=== PATIENT | female | born 1965 | race Caucasian/White ===

== ENCOUNTER 2017-05-03 17:37 | Inpatient (IN) | payer MEDICAID, MEDICARE, OTHER ==
[~2017-05-03] VITALS: Ht 154.9 cm; Wt 65.0 kg
[~2017-05-03 17:37] MED LIST: ATOR40TA PO; CITA20TA9 PO; FAMO-63 PO; METF-620 PO; MONT10TA9 PO; NICO1PAT21 TP; WARF10TA45 PO
[2017-05-03 18:22] LABS: BASO % 1 % (0-3); EOS % 3 % (0-3); LYMPH # 0.9 x10^3/uL (1.0-4.8); LYMPH % 21 % (24-48); MEAN CORPUSCULAR HEMOGLOBIN 35 pg (25-35); MEAN CORPUSCULAR HGB CONC 32 g/dL (31-37); MEAN CORPUSCULAR VOLUME 108 fL (79-100); MONO % 6 % (0-9); NEUT % 68 % (31-73); PLATELET COUNT 197 x10^3/uL (140-400); RED BLOOD COUNT 1.76 x10^6/uL (3.50-5.40); RED CELL DISTRIBUTION WIDTH 19.2 % (11.5-14.5); WHITE BLOOD COUNT 4.4 x10^3/uL (4.0-11.0)
[2017-05-03 18:25] LABS: HEMATOCRIT 18.9 % (36.0-47.0); HEMOGLOBIN 6.1 g/dL (12.0-15.5)
[2017-05-03 18:39] LABS: BILIRUBIN,URINE SMALL (NEG); GLUCOSE,URINE NEGATIVE (NEG); NITRITE,URINE NEGATIVE (NEG); PROTEIN,URINE NEGATIVE (NEG-TRACE)
[2017-05-03 18:40] LABS: CALCIUM 8.7 mg/dL (8.5-10.1); CREATININE 0.9 mg/dL (0.6-1.0); GFR 65.5; POTASSIUM 3.8 mmol/L (3.5-5.1)
[2017-05-03 18:46] LABS: ALBUMIN/GLOBULIN RATIO 0.9 (1.0-1.7); TOTAL BILIRUBIN 2.4 mg/dL (0.2-1.0); TOTAL PROTEIN 8.3 g/dL (6.4-8.2)
[2017-05-03 18:48] LABS: BACTERIA,URINE 0 /HPF (0-FEW); RBC,URINE 0 /HPF (0-2); SQUAMOUS EPITHELIAL CELL,UR FEW /LPF
[2017-05-03] MEDS ORDERED: predniSONE 20 MG TABLET PO ONE (19:15)
[2017-05-03] MEDS ORDERED: ONDANSETRON PF 4 MG/2 ML VIAL. IV PRN (19:15)
[2017-05-03] MEDS ORDERED: ACETAMINOPHEN 325 MG TABLET. PO PRN (19:15)
[2017-05-03 19:30] VITALS: BP 138/72
--- NOTE | 2017-05-03 19:48 | ED.ADGEN ---
Past Medical History Past Medical History: Anemia, COPD Additional Past Medical Histor: PTSD, BLOOD CLOTS, VISUALLY IMPAIRED, HEMOLYTIC ANEMIA Past Surgical History: Tonsillectomy, Other Additional Past Surgical Histo: THORACOTAMY Alcohol Use: None Drug Use: None Adult General Chief Complaint Chief Complaint: SHORTNESS OF BREATH HPI HPI Patient is a 51 year old [woman, history of COPD, hemolytic anemia, visual impairment, DVT after prolonged course of intubation 2 years ago, who presents emergency Department with a complaint of shortness of breath, lightheadedness, and dizziness over the past several days. Patient noted be tachycardic upon arousing the emergency department, heart rate in the 1 teens, states that she feels "like this with my anemia". Patient unable to clarify further her type of hemolytic anemia. She states that she last received a transfusion of 4 units 2014, states her hemoglobin is generally in the 11's, but has gone down to 2.5 previously. She denies any blood in her stool or urine, any injuries, denies any chest pain, states that she is expressing shortness of breath, with dyspnea on exertion, lightheadedness and dizziness, but no vertiginous symptoms, no syncope, no focal weakness, numbness or tingling, no recent travel or surgery, no swelling extremities. She states she has been otherwise compliant with medications. She does smoke cigarettes daily, no drugs or alcohol. Review of Systems Review of Systems Constitutional: Denies fever or chills. [] Eyes: Denies change in visual acuity. [] HENT: Denies nasal congestion or sore throat. [] Respiratory: Denies cough, shortness of breath, lightheadedness and dizziness. Cardiovascular: Denies chest pain or edema. [] GI: Denies abdominal pain, nausea, vomiting, bloody stools or diarrhea. [] : Denies dysuria. [] Musculoskeletal: Denies back pain or joint pain. [] Integument: Denies rash. [] Neurologic: Denies headache, focal weakness or sensory changes. [] Endocrine: Denies polyuria or polydipsia. [] Lymphatic: Denies swollen glands. [] Psychiatric: Denies depression or anxiety. [] Allergies Allergies Allergies Coded Allergies Type Severity Reaction Last Updated Verified No Known Drug Allergies 07/10/16 No Physical Exam Physical Exam Constitutional: Well developed, well nourished, no acute distress, patient is pale, with scleral icterus noted. [] HENT: Normocephalic, atraumatic, bilateral external ears normal, oropharynx moist, no oral exudates, nose normal. [] Eyes: PERRLA, EOMI, scleral icterus, no discharge. [] Neck: Normal range of motion, no tenderness, supple, no stridor. [] Cardiovascular: Tachycardic, S1, S2, no rubs or gallops. [] Lungs & Thorax: Diminished breath sounds at bases bilaterally, no rhonchi or rales. No wheezing. No chest wall tenderness or crepitus. Abdomen: Bowel sounds normal, soft, no tenderness, no rebound, no rigidity,no guarding, no masses, no pulsatile masses. [] Skin: Warm, dry, no erythema, no rash. [] Back: No tenderness, no CVA tenderness. [] Extremities: No tenderness, no cyanosis, no clubbing, ROM intact, no edema. Negative Homans sign. Neurologic: Alert and oriented X 3, normal motor function, normal sensory function, no focal deficits noted. [] Psychologic: Affect normal, judgement normal, mood normal. [] Current Patient Data Vital Signs Vital Signs Date Time Temp Pulse Resp B/P (MAP) Pulse Ox O2 Delivery O2 Flow Rate FiO2 05/03/17 18:15 108 18 119/73 (88) 97 Room Air 05/03/17 17:45 98.3 98.3 Lab Values Laboratory Tests Test 05/03/17 18:10 05/03/17 18:30 White Blood Count 4.4 x10^3/uL (4.0-11.0) Red Blood Count 1.76 x10^6/uL (3.50-5.40) L Hemoglobin 6.1 g/dL (12.0-15.5) *L Hematocrit 18.9 % (36.0-47.0) *L Mean Corpuscular Volume 108 fL (79-100) H Mean Corpuscular Hemoglobin 35 pg (25-35) Mean Corpuscular Hemoglobin Concent 32 g/dL (31-37) Red Cell Distribution Width 19.2 % (11.5-14.5) H Platelet Count 197 x10^3/uL (140-400) Neutrophils (%) (Auto) 68 % (31-73) Lymphocytes (%) (Auto) 21 % (24-48) L Monocytes (%) (Auto) 6 % (0-9) Eosinophils (%) (Auto) 3 % (0-3) Basophils (%) (Auto) 1 % (0-3) Neutrophils # (Auto) 3.0 x10^3uL (1.8-7.7) Lymphocytes # (Auto) 0.9 x10^3/uL (1.0-4.8) L Monocytes # (Auto) 0.3 x10^3/uL (0.0-1.1) Eosinophils # (Auto) 0.1 x10^3/uL (0.0-0.7) Basophils # (Auto) 0.0 x10^3/uL (0.0-0.2) Reticulocyte Count (auto) 9.5 % (0.5-2.5) H Sodium Level 140 mmol/L (136-145) Potassium Level 3.8 mmol/L (3.5-5.1) Chloride Level 103 mmol/L (98-107) Carbon Dioxide Level 29 mmol/L (21-32) Anion Gap 8 (6-14) Blood Urea Nitrogen 22 mg/dL (7-20) H Creatinine 0.9 mg/dL (0.6-1.0) Estimated GFR (Cockcroft-Gault) 65.5 BUN/Creatinine Ratio 24 (6-20) H Glucose Level 130 mg/dL (70-99) H Calcium Level 8.7 mg/dL (8.5-10.1) Total Bilirubin 2.4 mg/dL (0.2-1.0) H Aspartate Amino Transferase (AST) 17 U/L (15-37) Alanine Aminotransferase (ALT) 19 U/L (14-59) Alkaline Phosphatase 55 U/L (46-116) Lactate Dehydrogenase 233 U/L (81-234) Troponin I Quantitative < 0.017 ng/mL (0.000-0.055) JI-Bhd-P-Type Natriuretic Peptide 379 pg/mL (0-124) H Total Protein 8.3 g/dL (6.4-8.2) H Albumin 4.0 g/dL (3.4-5.0) Albumin/Globulin Ratio 0.9 (1.0-1.7) L Urine Collection Type Unknown Urine Color Megan Urine Clarity Cloudy Urine pH 5.0 Urine Specific [place] >=1.030 Urine Protein Negative mg/dL (NEG-TRACE) Urine Glucose (UA) Negative mg/dL (NEG) Urine Ketones (Stick) Trace mg/dL (NEG) Urine Blood Negative (NEG) Urine Nitrite Negative (NEG) Urine Bilirubin Small (NEG) Urine Urobilinogen Dipstick 1.0 mg/dL (0.2 mg/dL) Urine Leukocyte Esterase Moderate (NEG) Urine RBC 0 /HPF (0-2) Urine WBC 11-20 /HPF (0-4) Urine Squamous Epithelial Cells Few /LPF Urine Amorphous Sediment Present /HPF Urine Bacteria 0 /HPF (0-FEW) Urine Mucus Mod /LPF Laboratory Tests 05/03/17 18:10 Laboratory Tests 05/03/17 18:10 EKG EKG EC: Sinus rhythm, heart rate 95 bpm, upright axis, QTC of 458, MI 158, QRS of 88, no ST elevations or depressions, no evidence of acute ST abnormalities. As interpreted by me. [] Radiology/Procedures Radiology/Procedures Chest x-ray: One view: Patient with hyperinflation noted bilaterally, consistent with history of COPD, no discrete infiltrates, effusions, pneumothorax, soft tissue or bony abnormalities identified. Cardiac silhouette is well-preserved. Flattening of the diaphragms. As interpreted by me. [] Course & Med Decision Making Course & Med Decision Making Pertinent Labs and Imaging studies reviewed. (See chart for details) Patient with pallor, tachycardia, dyspnea on exertion, and lightheadedness consistent with symptoms that anemia, hemoglobin is 6.1 in the emergency department, total bilirubin of 2.4, with scleral icterus as stated, consistent with hemolytic anemia. I did discuss these findings patient, she is agreeable for admission to the hospital for transfusion and evaluation with hematology oncology. Verbal and written consent for blood transfusion obtained, patient was typed and crossed for 2 units of packed red cells. An LDH, haptoglobin, reticulocyte count were added to her basic laboratory studies. I did speak with of hematology oncology, will institute 1 mg/kg of prednisone daily, first dose given in the emergency department. Findings as above discussed with Dr. Hernandez of internal medicine, patient accepted as a full admission to the medical telemetry floor to his service, with bridge orders entered per discussion. Dragon Disclaimer Dragon Disclaimer This electronic medical record was generated, in whole or in part, using a voice recognition dictation system. Departure Impression: Primary Impression: Anemia Disposition: 09 ADMITTED INPATIENT Admitting Physician: Mariangel Hernandez Condition: IMPROVED Problem Qualifiers Primary Impression: Anemia Anemia type: acquired or hereditary hemolytic anemia Hemolytic anemia type: hereditary hemolytic anemia, unspecified Qualified Codes: D58.9 - Hereditary hemolytic anemia, unspecified ROD DELGADILLO DO May 03, 2017 19:48
[2017-05-03] MEDS: IPRATRPIUM/ALBUTEROL 0.5/2.5MG 3 ML NEBU. NEB SCH (20:25)
[2017-05-03] MEDS ORDERED: CITA40TA12 PO (20:59)
[2017-05-03] MEDS ORDERED: ZOLP5TAB PO (20:59)
[2017-05-03] MEDS ORDERED: METF500T4 PO (20:59)
[2017-05-03] MEDS: FAMOTIDINE 20 MG TABLET. PO SCH (21:27)
[2017-05-03] MEDS: ATORVASTATIN CALCIUM 40 MG TABLET. PO SCH (21:27)
[2017-05-03] MEDS: MONTELUKAST SODIUM 10 MG TABLET. PO SCH (21:28)
[2017-05-03] MEDS: ZOLPIDEM 5 MG TABLET. PO SCH (21:28)
[2017-05-03] MEDS: CITALOPRAM 20 MG TABLET. PO SCH (21:28)
[2017-05-03] MEDS: NICOTINE 21MG PATCH. TD SCH (21:28)
[2017-05-03] MEDS ORDERED: metFORMIN 500 MG TABLET PO ONE (22:00)
[2017-05-03 22:30] VITALS: BP 124/64
[2017-05-03 22:45] VITALS: BP 123/70
[2017-05-03] MEDS ORDERED: diphenhydrAMINE 50 MG/ML VIAL IVP PRN (22:45)
[2017-05-04] VITALS (9 sets, daily range): BP systolic 107–136; BP diastolic 57–81
--- NOTE | 2017-05-04 00:27 | HP ---
ADMIT DATE: 05/03/2017 CHIEF COMPLAINT: Weakness and shortness of breath. HISTORY OF PRESENT ILLNESS: The patient is a pleasant 51-year-old female who presents with weakness and shortness of breath. She has a previous history of anemia, sure enough, we checked her hemoglobin, it is in the 5s. I have discussed the case with the ER physician. We are going to admit the patient and consult Hematology/Oncology. PAST MEDICAL HISTORY: Chronic hemolytic anemia of undetermined etiology, depression, COPD, diabetes, visual changes, tobaccoism. ALLERGIES: None. FAMILY HISTORY: Hypertension. SOCIAL HISTORY: She smokes. No drinking or drugs. MEDICATIONS: Reviewed, please refer to the MRAD. REVIEW OF SYSTEMS: GENERAL: She complains of weakness. SKIN: No bruising, hair changes or rashes. EYES: No blurred, double or loss of vision. NOSE AND THROAT: No history of nosebleeds, hoarseness or sore throat. HEART: No history of palpitations, chest pain or shortness of breath on exertion. LUNGS: She complains of shortness of breath. GASTROINTESTINAL: Denies changes in appetite, nausea, vomiting, diarrhea or constipation. GENITOURINARY: No history of frequency, urgency, hesitancy or nocturia. NEUROLOGIC: Denies history of numbness, tingling, tremor or weakness. PSYCHIATRIC: No history of panic, anxiety or depression. ENDOCRINE: No history of heat or cold intolerance, polyuria or polydipsia. EXTREMITIES: Denies muscle weakness, joint pain, pain on walking or stiffness. PHYSICAL EXAMINATION: VITAL SIGNS: Temperature, afebrile; pulse 67; respirations 18; blood pressure 142/91. GENERAL: She is alert, cooperative, anxious. HEENT: She has very pale conjunctivae. HEART: Normal S1 and S2. LUNGS: Clear. GASTROINTESTINAL: Abdomen is soft. Decreased bowel sounds. EXTREMITIES: No edema. SKIN: No rashes. She is very pale. PSYCHIATRIC: She is anxious. VASCULAR: Good capillary refill. ENDOCRINE: No thyromegaly. LYMPHATICS: No cervical nodes. HEMATOPOIETIC: No bruising. ASSESSMENT AND PLAN: Probable acute on chronic hemolytic anemia. The patient has been admitted. We are checking haptoglobin levels, iron levels, LDH levels. Consult Dr. Christiansen. Transfuse between 2 and 4 units of packed red blood cells. Cardiac monitoring. NIAL Joanna BROWNING DO DR: Bev JOB#: [id number] / [id number]
--- NOTE | 2017-05-04 05:25 | ACF ---
Admission Forms Criteria ANEMIA, IRON DEFICIENCY OR UNSPECIFIED Clinical Indications for Inpatient Care (Place 'X' for any and all applicable criteria): Admission is indicated for ANY ONE of the following(1)(2)(3)(4)(5)(6)(7): [X] I. Inpatient admission required rather than observation care (Also use Anemia, Iron Deficiency or Unspecified: Observation Care guideline as appropriate) because of ANY ONE of the following: [] a) Hemodynamic instability that is severe or persistent [] b) Active bleeding that cannot be rapidly controlled [X] c) CVS symptoms (i.e., dyspnea, chest pain, heart failure) that are severe or persistent [] d) Neurologic symptoms (i.e., cognitive impairment, recurrent syncope or near syncope) that are severe or persistent [] e) Cardiac arrhythmias of immediate concern [] f) Acute peripheral ischemia (e.g., pulseless, cool, mottled, or cyanotic extremity) [] g) High-risk low platelet count [] h) Acute renal failure [] i) Ongoing transfusion for blood loss (greater than 2 units) [] j) IV fluid to replace significant ongoing (eg, >24 hours) losses (> 3 L/m2 per day) [] k) Pulmonary artery catheter monitoring [] l) Supplemental oxygen or respiratory treatments for over 24 hours that are performable only in acute inpatient setting [] m) Immediate inpatient surgery [] n) Other condition, treatment or monitoring requiring inpatient admission [] II Active massive hemorrhage [] III. Active hemolysis with rapidly progressive anemia [A](6) Extended stay beyond goal length of stay may be needed for (17)(18) []a) Diagnosed cause of anemia requiring longer hospitalization (eg, active GI bleeding, immune hemolysis requiring electrophoresis, complications of malignancy requiring acute care []b) Continued emergent anemia indicators (23) []c) Transfusion reactions []d) Associated leukopenia or thrombocytopenia needing inpatient care []e) Active comorbidities (eg, renal failure, heart failure) The original [facility] Care Guidelines content created by [facility] Care Guidelines has been revised. The portions of the content which have been revised are identified through the use of italic text or in bold. [facility] Guidelines has neither reviewed nor approved the modified material. All other unmodified content is copyright [facility] Care Guidelines. Please see references footnoted in the original [facility] edition 2016 Admission Criteria Met?: Yes ATIYA CARROLL May 04, 2017 05:25
--- NOTE | 2017-05-04 06:18 | EKG ---
[facility] [address] [place] [address] Test Date: 2017-05-03 Test Time: 18:18:03 Pat Name: LASHONDA EMANUEL Department: Room: Gender: F [employer] Worker: : 1965 Requested By: ROD DELGADILLO Order Number: [id number] Reading MD: Measurements Intervals [place] Rate: 95 P: 90 IL: 158 QRS: 79 QRSD: 88 T: 66 QT: 362 QTc: 458 Interpretive Statements SINUS RHYTHM NORMAL ECG RI6.01 Unconfirmed report No previous ECG available for comparison
[2017-05-04] MEDS: IPRATRPIUM/ALBUTEROL 0.5/2.5MG 3 ML NEBU. NEB SCH ×4 (07:03→19:21)
[2017-05-04 07:29] LABS: BASO % 0 % (0-3); EOS % 0 % (0-3); HEMATOCRIT 27.5 % (36.0-47.0); HEMOGLOBIN 9.1 g/dL (12.0-15.5); LYMPH # 0.4 x10^3/uL (1.0-4.8); LYMPH % 12 % (24-48); MEAN CORPUSCULAR HEMOGLOBIN 34 pg (25-35); MEAN CORPUSCULAR HGB CONC 33 g/dL (31-37); MEAN CORPUSCULAR VOLUME 101 fL (79-100); MONO % 3 % (0-9); NEUT % 85 % (31-73); PLATELET COUNT 208 x10^3/uL (140-400); RED BLOOD COUNT 2.72 x10^6/uL (3.50-5.40); RED CELL DISTRIBUTION WIDTH 19.2 % (11.5-14.5); WHITE BLOOD COUNT 3.6 x10^3/uL (4.0-11.0)
--- NOTE | 2017-05-04 07:31 | RAD ---
Indication: Shortness of air. Time of exam 1850 hours. Correlation is made with prior study from 07/10/2016. The heart size is stable. The lungs are hyperinflated consistent with COPD. Parenchymal scarring or atelectasis in the left base is noted. Previously seen bilateral infiltrates or atelectasis have resolved. No new abnormality is detected. There is no effusion or pneumothorax. Impression: COPD and chronic changes. No acute feature is detected.
--- NOTE | 2017-05-04 07:49 | RAD ---
Indication: Macrocytic anemia. The pancreas is unremarkable. The aorta is nonaneurysmal. The IVC is unremarkable. The liver is upper limits in size at 17.8 cm. No liver mass is identified. The gallbladder demonstrates a small polyp versus nonshadowing calculus. No wall thickening or pericholecystic fluid is identified. No biliary ductal dilatation is seen. The spleen is enlarged at 14.5 cm. Kidneys are unremarkable. No calculi or hydronephrosis is identified. There is no ascites. Impression: 1. Splenomegaly. 2. Small nonshadowing calculus versus polyp in the gallbladder. The study is otherwise unremarkable.
[2017-05-04 08:00] LABS: CALCIUM 8.8 mg/dL (8.5-10.1); POTASSIUM 4.5 mmol/L (3.5-5.1)
[2017-05-04 08:10] LABS: % SAT IRON 40 % (15-34); IRON,SERUM 119 ug/dL (50-170)
[2017-05-04] MEDS: metFORMIN 500 MG TABLET PO SCH ×2 (08:35→18:15)
[2017-05-04] MEDS: NICOTINE 21MG PATCH. TD SCH (08:35)
[2017-05-04] MEDS: predniSONE 20 MG TABLET PO SCH (08:41)
[2017-05-04 09:24] LABS: VITAMIN-B12 325 pg/mL (247-911)
[2017-05-04 10:12] LABS: FOLATE > 20.00 ng/ml (3.2-20.0)
--- NOTE | 2017-05-04 13:27 | PDOC ---
PROGRESS NOTES Chief Complaint Chief Complaint symptomatic anemia hemolytic anemia, recurrent on disability for visually impaired reports history of poor immune system, no prior treatment at History of Present Illness History of Present Illness feels much better today [ hgb improved cont PO prednisone, s/p transfusion retic count has bounced higher today, to 17.6 monitor counts tomorrow Vitals Vitals Vital Signs Date Time Temp Pulse Resp B/P (MAP) Pulse Ox O2 Delivery O2 Flow Rate FiO2 05/04/17 11:16 96 Room Air 05/04/17 11:00 98.7 87 18 134/69 (90) 98.7 Physical Exam General: Alert, Oriented X3, Cooperative, No acute distress Heart: Regular rate, No murmurs Abdomen: No tenderness, No hepatosplenomegaly Extremities: No clubbing, No cyanosis, No edema Skin: No breakdown Labs LABS Laboratory Tests Test 05/03/17 18:10 05/03/17 18:30 05/03/17 20:27 05/04/17 07:13 White Blood Count 4.4 x10^3/uL (4.0-11.0) 3.6 x10^3/uL (4.0-11.0) Red Blood Count 1.76 x10^6/uL (3.50-5.40) 2.72 x10^6/uL (3.50-5.40) Hemoglobin 6.1 g/dL (12.0-15.5) 9.1 g/dL (12.0-15.5) Hematocrit 18.9 % (36.0-47.0) 27.5 % (36.0-47.0) Mean Corpuscular Volume 108 fL (79-100) 101 fL (79-100) Mean Corpuscular Hemoglobin 35 pg (25-35) 34 pg (25-35) Mean Corpuscular Hemoglobin Concent 32 g/dL (31-37) 33 g/dL (31-37) Red Cell Distribution Width 19.2 % (11.5-14.5) 19.2 % (11.5-14.5) Platelet Count 197 x10^3/uL (140-400) 208 x10^3/uL (140-400) Neutrophils (%) (Auto) 68 % (31-73) 85 % (31-73) Lymphocytes (%) (Auto) 21 % (24-48) 12 % (24-48) Monocytes (%) (Auto) 6 % (0-9) 3 % (0-9) Eosinophils (%) (Auto) 3 % (0-3) 0 % (0-3) Basophils (%) (Auto) 1 % (0-3) 0 % (0-3) Neutrophils # (Auto) 3.0 x10^3uL (1.8-7.7) 3.0 x10^3uL (1.8-7.7) Lymphocytes # (Auto) 0.9 x10^3/uL (1.0-4.8) 0.4 x10^3/uL (1.0-4.8) Monocytes # (Auto) 0.3 x10^3/uL (0.0-1.1) 0.1 x10^3/uL (0.0-1.1) Eosinophils # (Auto) 0.1 x10^3/uL (0.0-0.7) 0.0 x10^3/uL (0.0-0.7) Basophils # (Auto) 0.0 x10^3/uL (0.0-0.2) 0.0 x10^3/uL (0.0-0.2) Reticulocyte Count (auto) 9.5 % (0.5-2.5) 17.6 % (0.5-2.5) Haptoglobin <10 mg/dL (34-200) Sodium Level 140 mmol/L (136-145) 139 mmol/L (136-145) Potassium Level 3.8 mmol/L (3.5-5.1) 4.5 mmol/L (3.5-5.1) Chloride Level 103 mmol/L (98-107) 104 mmol/L (98-107) Carbon Dioxide Level 29 mmol/L (21-32) 25 mmol/L (21-32) Anion Gap 8 (6-14) 10 (6-14) Blood Urea Nitrogen 22 mg/dL (7-20) 19 mg/dL (7-20) Creatinine 0.9 mg/dL (0.6-1.0) 1.0 mg/dL (0.6-1.0) Estimated GFR (Cockcroft-Gault) 65.5 58.0 BUN/Creatinine Ratio 24 (6-20) Glucose Level 130 mg/dL (70-99) 184 mg/dL (70-99) Calcium Level 8.7 mg/dL (8.5-10.1) 8.8 mg/dL (8.5-10.1) Total Bilirubin 2.4 mg/dL (0.2-1.0) Aspartate Amino Transf (AST/SGOT) 17 U/L (15-37) Alanine Aminotransferase (ALT/SGPT) 19 U/L (14-59) Alkaline Phosphatase 55 U/L (46-116) Lactate Dehydrogenase 233 U/L (81-234) Troponin I Quantitative < 0.017 ng/mL (0.000-0.055) KP-Qyk-[id number]-Type Natriuretic Peptide 379 pg/mL (0-124) Total Protein 8.3 g/dL (6.4-8.2) Albumin 4.0 g/dL (3.4-5.0) Albumin/Globulin Ratio 0.9 (1.0-1.7) Urine Collection Type Unknown Urine Color Megan Urine Clarity Cloudy Urine pH 5.0 Urine Specific Hayes >=1.030 Urine Protein Negative mg/dL (NEG-TRACE) Urine Glucose (UA) Negative mg/dL (NEG) Urine Ketones (Stick) Trace mg/dL (NEG) Urine Blood Negative (NEG) Urine Nitrite Negative (NEG) Urine Bilirubin Small (NEG) Urine Urobilinogen Dipstick 1.0 mg/dL (0.2 mg/dL) Urine Leukocyte Esterase Moderate (NEG) Urine RBC 0 /HPF (0-2) Urine WBC 11-20 /HPF (0-4) Urine Squamous Epithelial Cells Few /LPF Urine Amorphous Sediment Present /HPF Urine Bacteria 0 /HPF (0-FEW) Urine Mucus Mod /LPF Glucose (Fingerstick) 181 mg/dL (70-99) Iron Level 119 ug/dL (50-170) Total Iron Binding Capacity 298 ug/dL (250-450) Iron Saturation 40 % (15-34) Vitamin B12 Level 325 pg/mL (247-911) Serum Folate > 20.00 ng/ml (3.2-20.0) Thyroid Stimulating Hormone (TSH) 0.470 uIU/mL (0.358-3.74) Test 05/04/17 07:29 6/26/17 11:39 Glucose (Fingerstick) 185 mg/dL (70-99) 195 mg/dL (70-99) Review of Systems Review of Systems weakness and dyspnea improved Assessment and Plan Assessmemt and Plan labs in AM Problems: Comment Review of Relevant I have reviewed the following items deanna (where applicable) has been applied. Labs Laboratory Tests Test 05/03/17 18:10 05/03/17 18:30 05/03/17 20:27 05/04/17 07:13 White Blood Count 4.4 x10^3/uL (4.0-11.0) 3.6 x10^3/uL (4.0-11.0) Red Blood Count 1.76 x10^6/uL (3.50-5.40) 2.72 x10^6/uL (3.50-5.40) Hemoglobin 6.1 g/dL (12.0-15.5) 9.1 g/dL (12.0-15.5) Hematocrit 18.9 % (36.0-47.0) 27.5 % (36.0-47.0) Mean Corpuscular Volume 108 fL (79-100) 101 fL (79-100) Mean Corpuscular Hemoglobin 35 pg (25-35) 34 pg (25-35) Mean Corpuscular Hemoglobin Concent 32 g/dL (31-37) 33 g/dL (31-37) Red Cell Distribution Width 19.2 % (11.5-14.5) 19.2 % (11.5-14.5) Platelet Count 197 x10^3/uL (140-400) 208 x10^3/uL (140-400) Neutrophils (%) (Auto) 68 % (31-73) 85 % (31-73) Lymphocytes (%) (Auto) 21 % (24-48) 12 % (24-48) Monocytes (%) (Auto) 6 % (0-9) 3 % (0-9) Eosinophils (%) (Auto) 3 % (0-3) 0 % (0-3) Basophils (%) (Auto) 1 % (0-3) 0 % (0-3) Neutrophils # (Auto) 3.0 x10^3uL (1.8-7.7) 3.0 x10^3uL (1.8-7.7) Lymphocytes # (Auto) 0.9 x10^3/uL (1.0-4.8) 0.4 x10^3/uL (1.0-4.8) Monocytes # (Auto) 0.3 x10^3/uL (0.0-1.1) 0.1 x10^3/uL (0.0-1.1) Eosinophils # (Auto) 0.1 x10^3/uL (0.0-0.7) 0.0 x10^3/uL (0.0-0.7) Basophils # (Auto) 0.0 x10^3/uL (0.0-0.2) 0.0 x10^3/uL (0.0-0.2) Reticulocyte Count (auto) 9.5 % (0.5-2.5) 17.6 % (0.5-2.5) Haptoglobin <10 mg/dL (34-200) Sodium Level 140 mmol/L (136-145) 139 mmol/L (136-145) Potassium Level 3.8 mmol/L (3.5-5.1) 4.5 mmol/L (3.5-5.1) Chloride Level 103 mmol/L (98-107) 104 mmol/L (98-107) Carbon Dioxide Level 29 mmol/L (21-32) 25 mmol/L (21-32) Anion Gap 8 (6-14) 10 (6-14) Blood Urea Nitrogen 22 mg/dL (7-20) 19 mg/dL (7-20) Creatinine 0.9 mg/dL (0.6-1.0) 1.0 mg/dL (0.6-1.0) Estimated GFR (Cockcroft-Gault) 65.5 58.0 BUN/Creatinine Ratio 24 (6-20) Glucose Level 130 mg/dL (70-99) 184 mg/dL (70-99) Calcium Level 8.7 mg/dL (8.5-10.1) 8.8 mg/dL (8.5-10.1) Total Bilirubin 2.4 mg/dL (0.2-1.0) Aspartate Amino Transf (AST/SGOT) 17 U/L (15-37) Alanine Aminotransferase (ALT/SGPT) 19 U/L (14-59) Alkaline Phosphatase 55 U/L (46-116) Lactate Dehydrogenase 233 U/L (81-234) Troponin I Quantitative < 0.017 ng/mL (0.000-0.055) PI-Pgv-P-Type Natriuretic Peptide 379 pg/mL (0-124) Total Protein 8.3 g/dL (6.4-8.2) Albumin 4.0 g/dL (3.4-5.0) Albumin/Globulin Ratio 0.9 (1.0-1.7) Urine Collection Type Unknown Urine Color Megan Urine Clarity Cloudy Urine pH 5.0 Urine Specific Hayes >=1.030 Urine Protein Negative mg/dL (NEG-TRACE) Urine Glucose (UA) Negative mg/dL (NEG) Urine Ketones (Stick) Trace mg/dL (NEG) Urine Blood Negative (NEG) Urine Nitrite Negative (NEG) Urine Bilirubin Small (NEG) Urine Urobilinogen Dipstick 1.0 mg/dL (0.2 mg/dL) Urine Leukocyte Esterase Moderate (NEG) Urine RBC 0 /HPF (0-2) Urine WBC 11-20 /HPF (0-4) Urine Squamous Epithelial Cells Few /LPF Urine Amorphous Sediment Present /HPF Urine Bacteria 0 /HPF (0-FEW) Urine Mucus Mod /LPF Glucose (Fingerstick) 181 mg/dL (70-99) Iron Level 119 ug/dL (50-170) Total Iron Binding Capacity 298 ug/dL (250-450) Iron Saturation 40 % (15-34) Vitamin B12 Level 325 pg/mL (247-911) Serum Folate > 20.00 ng/ml (3.2-20.0) Thyroid Stimulating Hormone (TSH) 0.470 uIU/mL (0.358-3.74) Test 05/04/17 07:29 05/04/17 11:39 Glucose (Fingerstick) 185 mg/dL (70-99) 195 mg/dL (70-99) Laboratory Tests Test 05/03/17 18:10 05/03/17 18:30 05/03/17 20:27 05/04/17 07:13 White Blood Count 4.4 x10^3/uL (4.0-11.0) 3.6 x10^3/uL (4.0-11.0) Red Blood Count 1.76 x10^6/uL (3.50-5.40) 2.72 x10^6/uL (3.50-5.40) Hemoglobin 6.1 g/dL (12.0-15.5) 9.1 g/dL (12.0-15.5) Hematocrit 18.9 % (36.0-47.0) 27.5 % (36.0-47.0) Mean Corpuscular Volume 108 fL (79-100) 101 fL (79-100) Mean Corpuscular Hemoglobin 35 pg (25-35) 34 pg (25-35) Mean Corpuscular Hemoglobin Concent 32 g/dL (31-37) 33 g/dL (31-37) Red Cell Distribution Width 19.2 % (11.5-14.5) 19.2 % (11.5-14.5) Platelet Count 197 x10^3/uL (140-400) 208 x10^3/uL (140-400) Neutrophils (%) (Auto) 68 % (31-73) 85 % (31-73) Lymphocytes (%) (Auto) 21 % (24-48) 12 % (24-48) Monocytes (%) (Auto) 6 % (0-9) 3 % (0-9) Eosinophils (%) (Auto) 3 % (0-3) 0 % (0-3) Basophils (%) (Auto) 1 % (0-3) 0 % (0-3) Neutrophils # (Auto) 3.0 x10^3uL (1.8-7.7) 3.0 x10^3uL (1.8-7.7) Lymphocytes # (Auto) 0.9 x10^3/uL (1.0-4.8) 0.4 x10^3/uL (1.0-4.8) Monocytes # (Auto) 0.3 x10^3/uL (0.0-1.1) 0.1 x10^3/uL (0.0-1.1) Eosinophils # (Auto) 0.1 x10^3/uL (0.0-0.7) 0.0 x10^3/uL (0.0-0.7) Basophils # (Auto) 0.0 x10^3/uL (0.0-0.2) 0.0 x10^3/uL (0.0-0.2) Reticulocyte Count (auto) 9.5 % (0.5-2.5) 17.6 % (0.5-2.5) Haptoglobin <10 mg/dL (34-200) Sodium Level 140 mmol/L (136-145) 139 mmol/L (136-145) Potassium Level 3.8 mmol/L (3.5-5.1) 4.5 mmol/L (3.5-5.1) Chloride Level 103 mmol/L (98-107) 104 mmol/L (98-107) Carbon Dioxide Level 29 mmol/L (21-32) 25 mmol/L (21-32) Anion Gap 8 (6-14) 10 (6-14) Blood Urea Nitrogen 22 mg/dL (7-20) 19 mg/dL (7-20) Creatinine 0.9 mg/dL (0.6-1.0) 1.0 mg/dL (0.6-1.0) Estimated GFR (Cockcroft-Gault) 65.5 58.0 BUN/Creatinine Ratio 24 (6-20) Glucose Level 130 mg/dL (70-99) 184 mg/dL (70-99) Calcium Level 8.7 mg/dL (8.5-10.1) 8.8 mg/dL (8.5-10.1) Total Bilirubin 2.4 mg/dL (0.2-1.0) Aspartate Amino Transf (AST/SGOT) 17 U/L (15-37) Alanine Aminotransferase (ALT/SGPT) 19 U/L (14-59) Alkaline Phosphatase 55 U/L (46-116) Lactate Dehydrogenase 233 U/L (81-234) Troponin I Quantitative < 0.017 ng/mL (0.000-0.055) ZE-Ysz-H-Type Natriuretic Peptide 379 pg/mL (0-124) Total Protein 8.3 g/dL (6.4-8.2) Albumin 4.0 g/dL (3.4-5.0) Albumin/Globulin Ratio 0.9 (1.0-1.7) Urine Collection Type Unknown Urine Color Megan Urine Clarity Cloudy Urine pH 5.0 Urine Specific Hayes >=1.030 Urine Protein Negative mg/dL (NEG-TRACE) Urine Glucose (UA) Negative mg/dL (NEG) Urine Ketones (Stick) Trace mg/dL (NEG) Urine Blood Negative (NEG) Urine Nitrite Negative (NEG) Urine Bilirubin Small (NEG) Urine Urobilinogen Dipstick 1.0 mg/dL (0.2 mg/dL) Urine Leukocyte Esterase Moderate (NEG) Urine RBC 0 /HPF (0-2) Urine WBC 11-20 /HPF (0-4) Urine Squamous Epithelial Cells Few /LPF Urine Amorphous Sediment Present /HPF Urine Bacteria 0 /HPF (0-FEW) Urine Mucus Mod /LPF Glucose (Fingerstick) 181 mg/dL (70-99) Iron Level 119 ug/dL (50-170) Total Iron Binding Capacity 298 ug/dL (250-450) Iron Saturation 40 % (15-34) Vitamin B12 Level 325 pg/mL (247-911) Serum Folate > 20.00 ng/ml (3.2-20.0) Thyroid Stimulating Hormone (TSH) 0.470 uIU/mL (0.358-3.74) Test 05/04/17 07:29 05/04/17 11:39 Glucose (Fingerstick) 185 mg/dL (70-99) 195 mg/dL (70-99) Medications Current Medications Prednisone (Prednisone) 60 mg 1X ONCE PO Last administered on 05/03/17 19:11 ; Start 05/03/17 at 19:15; Stop 05/03/17 at 19:16; Status DC Ondansetron HCl (Zofran) 4 mg PRN Q8HRS PRN IV NAUSEA/VOMITING; Start 05/03/17 at 19:15; Stop 05/04/17 at 19:14 Acetaminophen (Tylenol) 650 mg PRN Q4HRS PRN PO FEVER; Start 05/03/17 at 19:15 ; Stop 05/04/17 at 19:14 Albuterol/ Ipratropium (Duoneb) 3 ml RTQID NEB Last administered on 05/04/17 11:16; Start 05/03/17 at 20:00; Stop 05/04/17 at 19:59 Prednisone (Prednisone) 60 mg DAILY PO Last administered on 05/04/17 08:41; Start 05/04/17 at 09:00 Atorvastatin Calcium (Lipitor) 40 mg QHS PO Last administered on 05/03/17 21: 27; Start 05/03/17 at 21:00 Famotidine (Pepcid) 20 mg QHS PO Last administered on 05/03/17 21:27; Start at 21:00 Metformin HCl (Glucophage) 500 mg BIDWMEALS PO Last administered on 05/04/17 08:35; Start 05/04/17 at 08:00 Montelukast Sodium (Singulair) 10 mg QHS PO Last administered on 05/03/17 21: 28; Start 05/03/17 at 21:00 Nicotine (Nicoderm Cq 21mg) 1 patch DAILY TD Last administered on 05/04/17 08: 35; Start 05/03/17 at 21:00 Zolpidem Tartrate (Ambien) 5 mg QHS PO Last administered on 05/03/17 21:28; Start 05/03/17 at 21:00 Citalopram Hydrobromide (CeleXA) 40 mg QHS PO Last administered on 05/03/17 21 :28; Start 05/03/17 at 21:30 Metformin HCl (Glucophage) 500 mg 1X ONCE PO Last administered on 05/03/17 21 :40; Start 05/03/17 at 22:00; Stop 05/03/17 at 22:01; Status DC Diphenhydramine HCl (Benadryl) 25 mg PRN Q6HRS PRN IVP ITCHING Last administered on 05/03/17 23:31; Start 05/03/17 at 22:45 Lorazepam (Ativan) 1 mg PRN Q4HRS PRN IV ANXIETY / AGITATION Last administered on 05/04/17 01:04; Start 05/04/17 at 01:00 Vitamin B Complex (Folbic Tablet) 1 tab DAILY PO ; Start 05/04/17 at 13:30 Active Scripts Active Reported Ambien (Zolpidem Tartrate) 5 Mg Tablet 1 Tab PO QHS Celexa (Citalopram Hydrobromide) 40 Mg Tablet 1 Tab PO HS Metformin Hcl 500 Mg Tablet 500 Mg PO BIDWMEALS NICODERM CQ 21mg (Nicotine) 1 Each Patch.td24 1 Patch TP DAILY Montelukast Sodium Tablet (Montelukast Sodium) 10 Mg Tablet 1 Tab PO QHS Pepcid (Famotidine) 20 Mg Tablet 20 Mg PO QHS Lipitor (Atorvastatin Calcium) 40 Mg Tablet 1 Tab PO QHS Coumadin (Warfarin Sodium) 10 Mg Tablet 1 Tab PO DAILY 10 mg Thursday, Thursday, , Thursday Coumadin (Warfarin Sodium) 10 Mg Tablet 2 Tab PO 3X/WEEK 20 mg Thursday, Thursday and Thursday Vitals/I & O Vital Sign - Last 24 Hours 05/03/17 05/03/17 05/03/17 05/03/17 17:45 18:15 18:45 19:15 Temp 98.3 98.3 Pulse 105 108 114 106 Resp 22 18 18 20 B/P (MAP) 141/69 (93) 119/73 (88) 126/75 (92) 124/59 (80) Pulse Ox 98 97 96 97 O2 Delivery Room Air Room Air Room Air 05/03/17 05/03/17 05/03/17 05/03/17 19:30 20:00 20:24 20:27 Temp 97.5 97.5 Pulse 101 Resp 18 B/P (MAP) 138/72 (94) Pulse Ox 95 100 O2 Delivery Room Air Room Air Room Air Room Air 05/03/17 05/03/17 05/03/17 05/04/17 22:30 22:45 22:45 01:09 Temp 96.3 97.9 97.9 97.5 96.3 97.9 97.9 97.5 Pulse 98 101 101 89 Resp 18 20 20 20 B/P (MAP) 124/64 (84) 123/70 123/70 (87) 111/62 Pulse Ox 96 96 O2 Delivery Room Air Room Air 05/04/17 05/04/17 05/04/17 05/04/17 03:00 03:52 04:07 07:00 Temp 97.9 97.9 97.5 97.7 97.9 97.9 97.5 97.7 Pulse 86 86 88 91 Resp 18 20 20 18 B/P (MAP) 118/57 (77) 118/57 127/81 111/67 (82) Pulse Ox 94 94 O2 Delivery Room Air Room Air 05/04/17 05/04/17 05/04/17 05/04/17 07:03 08:00 11:00 11:16 Temp 98.7 98.7 Pulse 87 Resp 18 B/P (MAP) 134/69 (90) Pulse Ox 96 96 O2 Delivery Room Air Room Air Room Air Room Air Intake and Output 05/03/17 05/03/17 05/04/17 15:00 23:00 07:00 Intake Total 520 ml 895 ml Balance 520 ml 895 ml JENY CORTES MD May 04, 2017 13:27
[2017-05-04] MEDS: VITAMIN B12,B9,B6 COMPLEX 1 TABLET. PO SCH (15:46)
[2017-05-04 21:12] LABS: HEP A IGM ABDY Negative (Negative)
[2017-05-04] MEDS: FAMOTIDINE 20 MG TABLET. PO SCH (21:38)
[2017-05-04] MEDS: ZOLPIDEM 5 MG TABLET. PO SCH (21:38)
[2017-05-04] MEDS: MONTELUKAST SODIUM 10 MG TABLET. PO SCH (21:38)
[2017-05-04] MEDS: CITALOPRAM 20 MG TABLET. PO SCH (21:38)
[2017-05-04] MEDS: ATORVASTATIN CALCIUM 40 MG TABLET. PO SCH (21:39)
[2017-05-04] MEDS ORDERED: INSULIN DETEMIR 300 UNITS/3 ML INSULN.PEN. SQ ONE (22:00)
[2017-05-04] MEDS ORDERED: DEXTROSE 50% 25 GM / 50ML DISP.SYRIN. IV PRN (22:00)
[2017-05-05 03:23] VITALS: BP 129/81
--- NOTE | 2017-05-05 05:02 | CONS ---
DATE OF CONSULTATION: 05/04/2017 HEMATOLOGY/ONCOLOGY CONSULTATION REPORT CONSULTATION REQUESTED BY: Dr. Mariangel Hernandez. REASON FOR CONSULTATION: Autoimmune hemolytic anemia with worsening hemoglobin. HISTORY OF PRESENT ILLNESS: The patient is a 51-year-old female who was diagnosed with autoimmune hemolytic anemia at [facility] in 07/2013. She was then evaluated by Dr. Amanda Gallardo for management of prednisone for autoimmune hemolytic anemia. She received prednisone and then it was subsequently tapered. In 03/2014, she had evidence of relapse of autoimmune hemolytic anemia and she was started back on prednisone 60 mg a day on 03/14/2014. It was subsequently tapered. In 09/2014, her hemoglobin worse at 9.5 and the prednisone was again increased to 40 mg a day and then subsequently tapered. In 01/2015, she was admitted to [facility] for parainfluenza infection. She has prolonged hospitalization and rehab. Her dose of prednisone was increased to 40 mg a day. In 06/2015, hemoglobin was 13 and prednisone dose was tapered and then discontinue it. She was admitted to [facility] in 12/2015 with fatigue and hemoglobin dropped to 7.8 with reticulocyte count of 9.9% and she was started on prednisone 60 mg a day on 12/28/2015 with a good response and then it was discontinued. Her hemoglobin at her last appointment at [facility] was 13.4 on 02/14/2016. She did not return for followup after that. The patient was [facility] on 05/03/2017 with severe anemia and a hemoglobin of 6.1. She noticed worsening fatigue from 05/01/2017, which prompted her to come to the Emergency Room. Her reticulocyte count was 9.5 on 05/03/2017 with a haptoglobin of less than 10. Her LDH was 233. Total bilirubin was 2.4. She was started on prednisone 60 mg a day on 05/03/2017. PAST MEDICAL HISTORY: Diabetes mellitus, autoimmune hemolytic anemia, uveitis, pulmonary embolism and COPD. PAST SURGICAL HISTORY: Cataract, tonsillectomy, adenoidectomy and thoracentesis. FAMILY HISTORY: Positive for hypertension, diabetes and skin cancer. REVIEW OF SYSTEMS: A 14-point review of system was performed. Pertinent positives are mentioned in the history of present illness. Rest of the system review is negative. PHYSICAL EXAMINATION: GENERAL APPEARANCE: The patient is a 51-year-old female who is in no acute cardiorespiratory distress. VITAL SIGNS: Blood pressure 134/69, temperature 98.7. HEENT: Head atraumatic, normocephalic. Eyes: No icterus. NECK: Supple. CHEST: Bilaterally symmetrical. No crepitations or rhonchi heard. HEART: S1, S2 normal. ABDOMEN: Soft, nontender. CENTRAL NERVOUS SYSTEM: No focal neurological deficits. LYMPHATICS: No lymphadenopathy. SKIN: No rashes. PSYCHOLOGIC: Mood and affect are appropriate. MUSCULOSKELETAL: No joint effusions. LABORATORY DATA: From 05/03/2017, WBC 4.4, hemoglobin 6.1, platelet count 197, retic count 9.5, haptoglobin less than 10. LDH 233. Total bilirubin 2.4. AST 17, ALT 19, alkaline phosphatase 55. Creatinine 1.0. B12 325, iron 119. TIBC 298, iron saturation 40. RADIOLOGICAL STUDIES: Ultrasound of the abdomen on 05/04/2017 revealed splenomegaly 14.5 cm and the liver is the upper limits of its normal. There was also evidence of calculus versus polyp in the gallbladder. IMPRESSION AND PLAN: 1. Recurrent autoimmune hemolytic anemia with significant worsening of hemoglobin of 6.1 on 05/03/2017. I started her on prednisone 60 mg a day on 05/03/2017 and continue to monitor her response. I also discussed with her about further treatment options with rituximab and if she has no response, then to proceed with splenectomy. I discussed in detail with the patient and her family and all her questions were answered. 2. Fatigue secondary to severe anemia. She was very symptomatic and she received 2 units of PRBC transfusion on 05/03/2017. Hemoglobin improved to 9.1 on 05/04/2017 and symptoms of fatigue also significantly improved. Continue to monitor hemoglobin. BIRD DURANT MD DR: RASHAWN/jazzy JOB#: [id number] / [id number] GRACIELA
[2017-05-05 05:13] LABS: BASO % 1 % (0-3); EOS % 1 % (0-3); HEMATOCRIT 25.6 % (36.0-47.0); HEMOGLOBIN 8.7 g/dL (12.0-15.5); LYMPH # 0.9 x10^3/uL (1.0-4.8); LYMPH % 20 % (24-48); MEAN CORPUSCULAR HEMOGLOBIN 34 pg (25-35); MEAN CORPUSCULAR HGB CONC 34 g/dL (31-37); MEAN CORPUSCULAR VOLUME 101 fL (79-100); MONO % 6 % (0-9); NEUT % 73 % (31-73); PLATELET COUNT 194 x10^3/uL (140-400); RED BLOOD COUNT 2.54 x10^6/uL (3.50-5.40); RED CELL DISTRIBUTION WIDTH 20.4 % (11.5-14.5); RETIC COUNT 18.6 % (0.5-2.5); WHITE BLOOD COUNT 4.7 x10^3/uL (4.0-11.0)
[2017-05-05 05:51] LABS: CALCIUM 8.5 mg/dL (8.5-10.1); CREATININE 0.9 mg/dL (0.6-1.0); GFR 65.5; POTASSIUM 3.5 mmol/L (3.5-5.1)
[2017-05-05 07:00] VITALS: BP 117/77
[2017-05-05] MEDS: INSULIN ASPART 300 UNITS/3 ML INSULN.PEN SQ SCH ×4 (07:30→21:00)
[2017-05-05] MEDS: IPRATRPIUM/ALBUTEROL 0.5/2.5MG 3 ML NEBU. NEB SCH ×4 (08:00→19:35)
[2017-05-05] MEDS ORDERED: INSULIN ASPART 300 UNITS/3 ML INSULN.PEN SQ SCH (08:00)
[2017-05-05] MEDS: NICOTINE 21MG PATCH. TD SCH (08:35)
[2017-05-05] MEDS: metFORMIN 500 MG TABLET PO SCH ×2 (08:36→17:23)
[2017-05-05] MEDS: predniSONE 20 MG TABLET PO SCH (08:36)
[2017-05-05] MEDS: VITAMIN B12,B9,B6 COMPLEX 1 TABLET. PO SCH (08:36)
[2017-05-05] MEDS ORDERED: POTASSIUM CHLORIDE 20 MEQ TABLET.ER. PO ONE (09:15)
--- NOTE | 2017-05-05 09:24 | PDOC ---
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 Kuldip Luu Vitals Vital Signs Date Time Temp Pulse Resp B/P (MAP) Pulse Ox O2 Delivery O2 Flow Rate FiO2 05/05/17 07:00 97.9 90 20 117/77 (90) 98 Room Air 97.9 Physical Exam General: Alert, Oriented X3, Cooperative, No acute distress Heart: Regular rate, No murmurs Abdomen: No tenderness, No hepatosplenomegaly Extremities: No clubbing, No cyanosis, No edema Skin: No breakdown Labs LABS Laboratory Tests Test 05/04/17 11:39 05/04/17 17:02 05/04/17 20:53 05/05/17 04:29 Glucose (Fingerstick) 195 mg/dL (70-99) 263 mg/dL (70-99) 233 mg/dL (70-99) White Blood Count 4.7 x10^3/uL (4.0-11.0) Red Blood Count 2.54 x10^6/uL (3.50-5.40) Hemoglobin 8.7 g/dL (12.0-15.5) Hematocrit 25.6 % (36.0-47.0) Mean Corpuscular Volume 101 fL (79-100) Mean Corpuscular Hemoglobin 34 pg (25-35) Mean Corpuscular Hemoglobin Concent 34 g/dL (31-37) Red Cell Distribution Width 20.4 % (11.5-14.5) Platelet Count 194 x10^3/uL (140-400) Neutrophils (%) (Auto) 73 % (31-73) Lymphocytes (%) (Auto) 20 % (24-48) Monocytes (%) (Auto) 6 % (0-9) Eosinophils (%) (Auto) 1 % (0-3) Basophils (%) (Auto) 1 % (0-3) Neutrophils # (Auto) 3.4 x10^3uL (1.8-7.7) Lymphocytes # (Auto) 0.9 x10^3/uL (1.0-4.8) Monocytes # (Auto) 0.3 x10^3/uL (0.0-1.1) Eosinophils # (Auto) 0.0 x10^3/uL (0.0-0.7) Basophils # (Auto) 0.0 x10^3/uL (0.0-0.2) Reticulocyte Count (auto) 18.6 % (0.5-2.5) Sodium Level 143 mmol/L (136-145) Potassium Level 3.5 mmol/L (3.5-5.1) Chloride Level 106 mmol/L (98-107) Carbon Dioxide Level 28 mmol/L (21-32) Anion Gap 9 (6-14) Blood Urea Nitrogen 21 mg/dL (7-20) Creatinine 0.9 mg/dL (0.6-1.0) Estimated GFR (Cockcroft-Gault) 65.5 Glucose Level 111 mg/dL (70-99) Calcium Level 8.5 mg/dL (8.5-10.1) Test 05/05/17 07:32 Glucose (Fingerstick) 131 mg/dL (70-99) Review of Systems Review of Systems no n.v.d Assessment and Plan Assessmemt and Plan monitor Hgb , plan for DC tomorrow if similar Problems: Comment Review of Relevant I have reviewed the following items deanna (where applicable) has been applied. Labs Laboratory Tests Test 05/03/17 18:10 05/03/17 18:30 05/03/17 20:27 05/04/17 07:13 White Blood Count 4.4 x10^3/uL (4.0-11.0) 3.6 x10^3/uL (4.0-11.0) Red Blood Count 1.76 x10^6/uL (3.50-5.40) 2.72 x10^6/uL (3.50-5.40) Hemoglobin 6.1 g/dL (12.0-15.5) 9.1 g/dL (12.0-15.5) Hematocrit 18.9 % (36.0-47.0) 27.5 % (36.0-47.0) Mean Corpuscular Volume 108 fL (79-100) 101 fL (79-100) Mean Corpuscular Hemoglobin 35 pg (25-35) 34 pg (25-35) Mean Corpuscular Hemoglobin Concent 32 g/dL (31-37) 33 g/dL (31-37) Red Cell Distribution Width 19.2 % (11.5-14.5) 19.2 % (11.5-14.5) Platelet Count 197 x10^3/uL (140-400) 208 x10^3/uL (140-400) Neutrophils (%) (Auto) 68 % (31-73) 85 % (31-73) Lymphocytes (%) (Auto) 21 % (24-48) 12 % (24-48) Monocytes (%) (Auto) 6 % (0-9) 3 % (0-9) Eosinophils (%) (Auto) 3 % (0-3) 0 % (0-3) Basophils (%) (Auto) 1 % (0-3) 0 % (0-3) Neutrophils # (Auto) 3.0 x10^3uL (1.8-7.7) 3.0 x10^3uL (1.8-7.7) Lymphocytes # (Auto) 0.9 x10^3/uL (1.0-4.8) 0.4 x10^3/uL (1.0-4.8) Monocytes # (Auto) 0.3 x10^3/uL (0.0-1.1) 0.1 x10^3/uL (0.0-1.1) Eosinophils # (Auto) 0.1 x10^3/uL (0.0-0.7) 0.0 x10^3/uL (0.0-0.7) Basophils # (Auto) 0.0 x10^3/uL (0.0-0.2) 0.0 x10^3/uL (0.0-0.2) Reticulocyte Count (auto) 9.5 % (0.5-2.5) 17.6 % (0.5-2.5) Haptoglobin <10 mg/dL (34-200) Sodium Level 140 mmol/L (136-145) 139 mmol/L (136-145) Potassium Level 3.8 mmol/L (3.5-5.1) 4.5 mmol/L (3.5-5.1) Chloride Level 103 mmol/L (98-107) 104 mmol/L (98-107) Carbon Dioxide Level 29 mmol/L (21-32) 25 mmol/L (21-32) Anion Gap 8 (6-14) 10 (6-14) Blood Urea Nitrogen 22 mg/dL (7-20) 19 mg/dL (7-20) Creatinine 0.9 mg/dL (0.6-1.0) 1.0 mg/dL (0.6-1.0) Estimated GFR (Cockcroft-Gault) 65.5 58.0 BUN/Creatinine Ratio 24 (6-20) Glucose Level 130 mg/dL (70-99) 184 mg/dL (70-99) Calcium Level 8.7 mg/dL (8.5-10.1) 8.8 mg/dL (8.5-10.1) Total Bilirubin 2.4 mg/dL (0.2-1.0) Aspartate Amino Transf (AST/SGOT) 17 U/L (15-37) Alanine Aminotransferase (ALT/SGPT) 19 U/L (14-59) Alkaline Phosphatase 55 U/L (46-116) Lactate Dehydrogenase 233 U/L (81-234) Troponin I Quantitative < 0.017 ng/mL (0.000-0.055) IN-Dzu-B-Type Natriuretic Peptide 379 pg/mL (0-124) Total Protein 8.3 g/dL (6.4-8.2) Albumin 4.0 g/dL (3.4-5.0) Albumin/Globulin Ratio 0.9 (1.0-1.7) Urine Collection Type Unknown Urine Color [place] Urine Clarity Cloudy Urine pH 5.0 Urine Specific [place] >=1.030 Urine Protein Negative mg/dL (NEG-TRACE) Urine Glucose (UA) Negative mg/dL (NEG) Urine Ketones (Stick) Trace mg/dL (NEG) Urine Blood Negative (NEG) Urine Nitrite Negative (NEG) Urine Bilirubin Small (NEG) Urine Urobilinogen Dipstick 1.0 mg/dL (0.2 mg/dL) Urine Leukocyte Esterase Moderate (NEG) Urine RBC 0 /HPF (0-2) Urine WBC 11-20 /HPF (0-4) Urine Squamous Epithelial Cells Few /LPF Urine Amorphous Sediment Present /HPF Urine Bacteria 0 /HPF (0-FEW) Urine Mucus Mod /LPF Glucose (Fingerstick) 181 mg/dL (70-99) Iron Level 119 ug/dL (50-170) Total Iron Binding Capacity 298 ug/dL (250-450) Iron Saturation 40 % (15-34) Vitamin B12 Level 325 pg/mL (247-911) Serum Folate > 20.00 ng/ml (3.2-20.0) Thyroid Stimulating Hormone (TSH) 0.470 uIU/mL (0.358-3.74) Test 05/04/17 07:29 05/04/17 08:45 05/04/17 11:39 05/04/17 17:02 Glucose (Fingerstick) 185 mg/dL (70-99) 195 mg/dL (70-99) 263 mg/dL (70-99) Hepatitis A IgM Antibody Negative (Negative) Hepatitis B Surface Antigen Negative (Negative) Hepatitis B Core IgM Antibody Negative (Negative) Hepatitis C Antibody 0.1 s/co ratio (0.0-0.9) Test 05/04/17 20:53 05/05/17 04:29 05/05/17 07:32 Glucose (Fingerstick) 233 mg/dL (70-99) 131 mg/dL (70-99) White Blood Count 4.7 x10^3/uL (4.0-11.0) Red Blood Count 2.54 x10^6/uL (3.50-5.40) Hemoglobin 8.7 g/dL (12.0-15.5) Hematocrit 25.6 % (36.0-47.0) Mean Corpuscular Volume 101 fL (79-100) Mean Corpuscular Hemoglobin 34 pg (25-35) Mean Corpuscular Hemoglobin Concent 34 g/dL (31-37) Red Cell Distribution Width 20.4 % (11.5-14.5) Platelet Count 194 x10^3/uL (140-400) Neutrophils (%) (Auto) 73 % (31-73) Lymphocytes (%) (Auto) 20 % (24-48) Monocytes (%) (Auto) 6 % (0-9) Eosinophils (%) (Auto) 1 % (0-3) Basophils (%) (Auto) 1 % (0-3) Neutrophils # (Auto) 3.4 x10^3uL (1.8-7.7) Lymphocytes # (Auto) 0.9 x10^3/uL (1.0-4.8) Monocytes # (Auto) 0.3 x10^3/uL (0.0-1.1) Eosinophils # (Auto) 0.0 x10^3/uL (0.0-0.7) Basophils # (Auto) 0.0 x10^3/uL (0.0-0.2) Reticulocyte Count (auto) 18.6 % (0.5-2.5) Sodium Level 143 mmol/L (136-145) Potassium Level 3.5 mmol/L (3.5-5.1) Chloride Level 106 mmol/L (98-107) Carbon Dioxide Level 28 mmol/L (21-32) Anion Gap 9 (6-14) Blood Urea Nitrogen 21 mg/dL (7-20) Creatinine 0.9 mg/dL (0.6-1.0) Estimated GFR (Cockcroft-Gault) 65.5 Glucose Level 111 mg/dL (70-99) Calcium Level 8.5 mg/dL (8.5-10.1) Laboratory Tests Test 05/04/17 11:39 05/04/17 17:02 05/04/17 20:53 05/05/17 04:29 Glucose (Fingerstick) 195 mg/dL (70-99) 263 mg/dL (70-99) 233 mg/dL (70-99) White Blood Count 4.7 x10^3/uL (4.0-11.0) Red Blood Count 2.54 x10^6/uL (3.50-5.40) Hemoglobin 8.7 g/dL (12.0-15.5) Hematocrit 25.6 % (36.0-47.0) Mean Corpuscular Volume 101 fL (79-100) Mean Corpuscular Hemoglobin 34 pg (25-35) Mean Corpuscular Hemoglobin Concent 34 g/dL (31-37) Red Cell Distribution Width 20.4 % (11.5-14.5) Platelet Count 194 x10^3/uL (140-400) Neutrophils (%) (Auto) 73 % (31-73) Lymphocytes (%) (Auto) 20 % (24-48) Monocytes (%) (Auto) 6 % (0-9) Eosinophils (%) (Auto) 1 % (0-3) Basophils (%) (Auto) 1 % (0-3) Neutrophils # (Auto) 3.4 x10^3uL (1.8-7.7) Lymphocytes # (Auto) 0.9 x10^3/uL (1.0-4.8) Monocytes # (Auto) 0.3 x10^3/uL (0.0-1.1) Eosinophils # (Auto) 0.0 x10^3/uL (0.0-0.7) Basophils # (Auto) 0.0 x10^3/uL (0.0-0.2) Reticulocyte Count (auto) 18.6 % (0.5-2.5) Sodium Level 143 mmol/L (136-145) Potassium Level 3.5 mmol/L (3.5-5.1) Chloride Level 106 mmol/L (98-107) Carbon Dioxide Level 28 mmol/L (21-32) Anion Gap 9 (6-14) Blood Urea Nitrogen 21 mg/dL (7-20) Creatinine 0.9 mg/dL (0.6-1.0) Estimated GFR (Cockcroft-Gault) 65.5 Glucose Level 111 mg/dL (70-99) Calcium Level 8.5 mg/dL (8.5-10.1) Test 05/05/17 07:32 Glucose (Fingerstick) 131 mg/dL (70-99) Microbiology 05/03/17 Urine Culture - Preliminary, Resulted 05/03/17 Urine Culture Result 1 (REHANA) - Preliminary, Resulted Medications Current Medications Prednisone (Prednisone) 60 mg 1X ONCE PO Last administered on 05/03/17 19:11 ; Start 05/03/17 at 19:15; Stop 05/03/17 at 19:16; Status DC Ondansetron HCl (Zofran) 4 mg PRN Q8HRS PRN IV NAUSEA/VOMITING; Start 05/03/17 at 19:15; Stop 05/04/17 at 19:14; Status DC Acetaminophen (Tylenol) 650 mg PRN Q4HRS PRN PO FEVER Last administered on 05/04 15:33; Start 05/03/17 at 19:15; Stop 05/04/17 at 19:14; Status DC Albuterol/ Ipratropium (Duoneb) 3 ml RTQID NEB Last administered on 05/04/17 19:21; Start 05/03/17 at 20:00; Stop 05/04/17 at 19:59; Status DC Prednisone (Prednisone) 60 mg DAILY PO Last administered on 05/05/17 08:36; Start 05/04/17 at 09:00 Atorvastatin Calcium (Lipitor) 40 mg QHS PO Last administered on 05/04/17 21: 39; Start 05/03/17 at 21:00 Famotidine (Pepcid) 20 mg QHS PO Last administered on 05/04/17 21:38; Start at 21:00 Metformin HCl (Glucophage) 500 mg BIDWMEALS PO Last administered on 05/05/17 08:36; Start 05/04/17 at 08:00 Montelukast Sodium (Singulair) 10 mg QHS PO Last administered on 05/04/17 21: 38; Start 05/03/17 at 21:00 Nicotine (Nicoderm Cq 21mg) 1 patch DAILY TD Last administered on 05/05/17 08: 35; Start 05/03/17 at 21:00 Zolpidem Tartrate (Ambien) 5 mg QHS PO Last administered on 05/04/17 21:38; Start 05/03/17 at 21:00 Citalopram Hydrobromide (CeleXA) 40 mg QHS PO Last administered on 05/04/17 21 :38; Start 05/03/17 at 21:30 Metformin HCl (Glucophage) 500 mg 1X ONCE PO Last administered on 05/03/17 21 :40; Start 05/03/17 at 22:00; Stop 05/03/17 at 22:01; Status DC Diphenhydramine HCl (Benadryl) 25 mg PRN Q6HRS PRN IVP ITCHING Last administered on 05/03/17 23:31; Start 05/03/17 at 22:45 Lorazepam (Ativan) 1 mg PRN Q4HRS PRN IV ANXIETY / AGITATION Last administered on 05/04/17 22:21; Start 05/04/17 at 01:00 Vitamin B Complex (Folbic Tablet) 1 tab DAILY PO Last administered on 08:36; Start 05/04/17 at 13:30 Insulin Detemir (Levemir) 8 units 1X ONCE SQ Last administered on 05/04/17 22 :27; Start 05/04/17 at 22:00; Stop 05/04/17 at 22:01; Status DC Insulin Aspart (NovoLOG) 0-7 UNITS TIDWMEALS SQ ; Start 05/05/17 at 08:00; Stop 05/05/17 at 08:00; Status DC Dextrose (Dextrose 50%-Water Syringe) 12.5 gm PRN Q15MIN PRN IV SEE COMMENTS; Start 05/04/17 at 22:00 Insulin Aspart (NovoLOG) 0-7 UNITS QIDACHS SQ ; Start 05/05/17 at 07:30 Albuterol/ Ipratropium (Duoneb) 3 ml RTQID NEB ; Start 05/05/17 at 08:00 Active Scripts Active Reported Ambien (Zolpidem Tartrate) 5 Mg Tablet 1 Tab PO QHS Celexa (Citalopram Hydrobromide) 40 Mg Tablet 1 Tab PO HS Metformin Hcl 500 Mg Tablet 500 Mg PO BIDWMEALS NICODERM CQ 21mg (Nicotine) 1 Each Patch.td24 1 Patch TP DAILY Montelukast Sodium Tablet (Montelukast Sodium) 10 Mg Tablet 1 Tab PO QHS Pepcid (Famotidine) 20 Mg Tablet 20 Mg PO QHS Lipitor (Atorvastatin Calcium) 40 Mg Tablet 1 Tab PO QHS Coumadin (Warfarin Sodium) 10 Mg Tablet 1 Tab PO DAILY 10 mg Thursday, Thursday, , Thursday Coumadin (Warfarin Sodium) 10 Mg Tablet 2 Tab PO 3X/WEEK 20 mg Thursday, Thursday and Thursday Vitals/I & O Vital Sign - Last 24 Hours 05/04/17 05/04/17 05/04/17 05/04/17 11:00 11:16 15:00 15:27 Temp 98.7 98.6 98.7 98.6 Pulse 87 92 Resp 18 18 B/P (MAP) 134/69 (90) 126/69 (88) Pulse Ox 96 96 96 O2 Delivery Room Air Room Air Room Air Room Air 05/04/17 05/04/17 05/04/17 05/04/17 19:22 19:24 20:00 23:22 Temp 97.7 97.5 97.7 97.5 Pulse 109 102 Resp 18 18 B/P (MAP) 136/71 (92) 107/74 (85) Pulse Ox 96 94 96 O2 Delivery Room Air Room Air Room Air Room Air 05/05/17 05/05/17 03:23 07:00 Temp 97.9 97.9 97.9 97.9 Pulse 103 90 Resp 18 20 B/P (MAP) 129/81 (97) 117/77 (90) Pulse Ox 96 98 O2 Delivery Room Air Room Air Intake and Output 05/04/17 05/04/17 05/05/17 14:59 22:59 06:59 Intake Total 120 ml 240 ml Output Total 300 ml Balance 120 ml -60 ml JENY CORTES MD May 05, 2017 09:24
[2017-05-05 11:00] VITALS: BP 143/90
--- NOTE | 2017-05-05 14:27 | PDOC ---
PROGRESS NOTES Subjective Subjective c/c - f/u of Recurrent autoimmune hemolytic anemia ROS - fatigue improved. Objective Objective Vital Signs Date Time Temp Pulse Resp B/P (MAP) Pulse Ox O2 Delivery O2 Flow Rate FiO2 05/05/17 11:05 98 Room Air 05/05/17 11:00 98.3 101 20 143/90 (107) 98.3 Intake and Output 05/05/17 07:00 Intake Total 360 ml Output Total 300 ml Balance 60 ml Intake Oral 360 ml Output Urine Total 300 ml # Voids 5 Physical Exam General: Alert, Oriented X3 Neuro: Normal speech Psych/Mental Status: Mental status NL Assessment Assessment IMPRESSION AND PLAN: 1. Recurrent autoimmune hemolytic anemia with significant worsening of hemoglobin of 6.1 on 05/03/2017. I started her on prednisone 60 mg a day on 05/03/2017 and will continue to monitor her response. Hb is 8.7 on 05/05/17 with retic 18.6. Morro test was negative, but she has always responded to prednisone. Monitor Hb. If better tomorrow then can d/c home. If she fails to respond, then I would discuss with her about further treatment options with rituximab, and if she has no response to rituximab, then to proceed with splenectomy. 2. Fatigue secondary to severe anemia. She was very symptomatic and she received 2 units of PRBC transfusion on 05/03/2017. Hemoglobin improved to 9.1 on 05/04/2017 and symptoms of fatigue also significantly improved. Continue to monitor hemoglobin. Hb is 8.7 on 05/05/17 Comment Review of Relevant I have reviewed the following items deanna (where applicable) has been applied. Labs Laboratory Tests Test 05/03/17 18:10 05/03/17 18:30 05/03/17 20:27 05/04/17 07:13 White Blood Count 4.4 x10^3/uL (4.0-11.0) 3.6 x10^3/uL (4.0-11.0) Red Blood Count 1.76 x10^6/uL (3.50-5.40) 2.72 x10^6/uL (3.50-5.40) Hemoglobin 6.1 g/dL (12.0-15.5) 9.1 g/dL (12.0-15.5) Hematocrit 18.9 % (36.0-47.0) 27.5 % (36.0-47.0) Mean Corpuscular Volume 108 fL (79-100) 101 fL (79-100) Mean Corpuscular Hemoglobin 35 pg (25-35) 34 pg (25-35) Mean Corpuscular Hemoglobin Concent 32 g/dL (31-37) 33 g/dL (31-37) Red Cell Distribution Width 19.2 % (11.5-14.5) 19.2 % (11.5-14.5) Platelet Count 197 x10^3/uL (140-400) 208 x10^3/uL (140-400) Neutrophils (%) (Auto) 68 % (31-73) 85 % (31-73) Lymphocytes (%) (Auto) 21 % (24-48) 12 % (24-48) Monocytes (%) (Auto) 6 % (0-9) 3 % (0-9) Eosinophils (%) (Auto) 3 % (0-3) 0 % (0-3) Basophils (%) (Auto) 1 % (0-3) 0 % (0-3) Neutrophils # (Auto) 3.0 x10^3uL (1.8-7.7) 3.0 x10^3uL (1.8-7.7) Lymphocytes # (Auto) 0.9 x10^3/uL (1.0-4.8) 0.4 x10^3/uL (1.0-4.8) Monocytes # (Auto) 0.3 x10^3/uL (0.0-1.1) 0.1 x10^3/uL (0.0-1.1) Eosinophils # (Auto) 0.1 x10^3/uL (0.0-0.7) 0.0 x10^3/uL (0.0-0.7) Basophils # (Auto) 0.0 x10^3/uL (0.0-0.2) 0.0 x10^3/uL (0.0-0.2) Reticulocyte Count (auto) 9.5 % (0.5-2.5) 17.6 % (0.5-2.5) Haptoglobin <10 mg/dL (34-200) Sodium Level 140 mmol/L (136-145) 139 mmol/L (136-145) Potassium Level 3.8 mmol/L (3.5-5.1) 4.5 mmol/L (3.5-5.1) Chloride Level 103 mmol/L (98-107) 104 mmol/L (98-107) Carbon Dioxide Level 29 mmol/L (21-32) 25 mmol/L (21-32) Anion Gap 8 (6-14) 10 (6-14) Blood Urea Nitrogen 22 mg/dL (7-20) 19 mg/dL (7-20) Creatinine 0.9 mg/dL (0.6-1.0) 1.0 mg/dL (0.6-1.0) Estimated GFR (Cockcroft-Gault) 65.5 58.0 BUN/Creatinine Ratio 24 (6-20) Glucose Level 130 mg/dL (70-99) 184 mg/dL (70-99) Calcium Level 8.7 mg/dL (8.5-10.1) 8.8 mg/dL (8.5-10.1) Total Bilirubin 2.4 mg/dL (0.2-1.0) Aspartate Amino Transf (AST/SGOT) 17 U/L (15-37) Alanine Aminotransferase (ALT/SGPT) 19 U/L (14-59) Alkaline Phosphatase 55 U/L (46-116) Lactate Dehydrogenase 233 U/L (81-234) Troponin I Quantitative < 0.017 ng/mL (0.000-0.055) FI-Eok-G-Type Natriuretic Peptide 379 pg/mL (0-124) Total Protein 8.3 g/dL (6.4-8.2) Albumin 4.0 g/dL (3.4-5.0) Albumin/Globulin Ratio 0.9 (1.0-1.7) Urine Collection Type Unknown Urine Color Megan Urine Clarity Cloudy Urine pH 5.0 Urine Specific Jber >=1.030 Urine Protein Negative mg/dL (NEG-TRACE) Urine Glucose (UA) Negative mg/dL (NEG) Urine Ketones (Stick) Trace mg/dL (NEG) Urine Blood Negative (NEG) Urine Nitrite Negative (NEG) Urine Bilirubin Small (NEG) Urine Urobilinogen Dipstick 1.0 mg/dL (0.2 mg/dL) Urine Leukocyte Esterase Moderate (NEG) Urine RBC 0 /HPF (0-2) Urine WBC 11-20 /HPF (0-4) Urine Squamous Epithelial Cells Few /LPF Urine Amorphous Sediment Present /HPF Urine Bacteria 0 /HPF (0-FEW) Urine Mucus Mod /LPF Glucose (Fingerstick) 181 mg/dL (70-99) Iron Level 119 ug/dL (50-170) Total Iron Binding Capacity 298 ug/dL (250-450) Iron Saturation 40 % (15-34) Vitamin B12 Level 325 pg/mL (247-911) Serum Folate > 20.00 ng/ml (3.2-20.0) Thyroid Stimulating Hormone (TSH) 0.470 uIU/mL (0.358-3.74) Test 05/04/17 07:29 05/04/17 08:45 05/04/17 11:39 05/04/17 17:02 Glucose (Fingerstick) 185 mg/dL (70-99) 195 mg/dL (70-99) 263 mg/dL (70-99) Hepatitis A IgM Antibody Negative (Negative) Hepatitis B Surface Antigen Negative (Negative) Hepatitis B Core IgM Antibody Negative (Negative) Hepatitis C Antibody 0.1 s/co ratio (0.0-0.9) Test 05/04/17 20:53 05/05/17 04:29 05/05/17 07:32 05/05/17 11:03 Glucose (Fingerstick) 233 mg/dL (70-99) 131 mg/dL (70-99) 163 mg/dL (70-99) White Blood Count 4.7 x10^3/uL (4.0-11.0) Red Blood Count 2.54 x10^6/uL (3.50-5.40) Hemoglobin 8.7 g/dL (12.0-15.5) Hematocrit 25.6 % (36.0-47.0) Mean Corpuscular Volume 101 fL (79-100) Mean Corpuscular Hemoglobin 34 pg (25-35) Mean Corpuscular Hemoglobin Concent 34 g/dL (31-37) Red Cell Distribution Width 20.4 % (11.5-14.5) Platelet Count 194 x10^3/uL (140-400) Neutrophils (%) (Auto) 73 % (31-73) Lymphocytes (%) (Auto) 20 % (24-48) Monocytes (%) (Auto) 6 % (0-9) Eosinophils (%) (Auto) 1 % (0-3) Basophils (%) (Auto) 1 % (0-3) Neutrophils # (Auto) 3.4 x10^3uL (1.8-7.7) Lymphocytes # (Auto) 0.9 x10^3/uL (1.0-4.8) Monocytes # (Auto) 0.3 x10^3/uL (0.0-1.1) Eosinophils # (Auto) 0.0 x10^3/uL (0.0-0.7) Basophils # (Auto) 0.0 x10^3/uL (0.0-0.2) Reticulocyte Count (auto) 18.6 % (0.5-2.5) Sodium Level 143 mmol/L (136-145) Potassium Level 3.5 mmol/L (3.5-5.1) Chloride Level 106 mmol/L (98-107) Carbon Dioxide Level 28 mmol/L (21-32) Anion Gap 9 (6-14) Blood Urea Nitrogen 21 mg/dL (7-20) Creatinine 0.9 mg/dL (0.6-1.0) Estimated GFR (Cockcroft-Gault) 65.5 Glucose Level 111 mg/dL (70-99) Calcium Level 8.5 mg/dL (8.5-10.1) Laboratory Tests Test 05/04/17 17:02 05/04/17 20:53 05/05/17 04:29 05/05/17 07:32 Glucose (Fingerstick) 263 mg/dL (70-99) 233 mg/dL (70-99) 131 mg/dL (70-99) White Blood Count 4.7 x10^3/uL (4.0-11.0) Red Blood Count 2.54 x10^6/uL (3.50-5.40) Hemoglobin 8.7 g/dL (12.0-15.5) Hematocrit 25.6 % (36.0-47.0) Mean Corpuscular Volume 101 fL (79-100) Mean Corpuscular Hemoglobin 34 pg (25-35) Mean Corpuscular Hemoglobin Concent 34 g/dL (31-37) Red Cell Distribution Width 20.4 % (11.5-14.5) Platelet Count 194 x10^3/uL (140-400) Neutrophils (%) (Auto) 73 % (31-73) Lymphocytes (%) (Auto) 20 % (24-48) Monocytes (%) (Auto) 6 % (0-9) Eosinophils (%) (Auto) 1 % (0-3) Basophils (%) (Auto) 1 % (0-3) Neutrophils # (Auto) 3.4 x10^3uL (1.8-7.7) Lymphocytes # (Auto) 0.9 x10^3/uL (1.0-4.8) Monocytes # (Auto) 0.3 x10^3/uL (0.0-1.1) Eosinophils # (Auto) 0.0 x10^3/uL (0.0-0.7) Basophils # (Auto) 0.0 x10^3/uL (0.0-0.2) Reticulocyte Count (auto) 18.6 % (0.5-2.5) Sodium Level 143 mmol/L (136-145) Potassium Level 3.5 mmol/L (3.5-5.1) Chloride Level 106 mmol/L (98-107) Carbon Dioxide Level 28 mmol/L (21-32) Anion Gap 9 (6-14) Blood Urea Nitrogen 21 mg/dL (7-20) Creatinine 0.9 mg/dL (0.6-1.0) Estimated GFR (Cockcroft-Gault) 65.5 Glucose Level 111 mg/dL (70-99) Calcium Level 8.5 mg/dL (8.5-10.1) Test 05/05/17 11:03 Glucose (Fingerstick) 163 mg/dL (70-99) Microbiology 05/03/17 Urine Culture - Final, Complete 05/03/17 Urine Culture Result 1 (REHANA) - Final, Complete Medications Current Medications Prednisone (Prednisone) 60 mg 1X ONCE PO Last administered on 05/03/17t 19:11 ; Start 05/03/17 at 19:15; Stop 05/03/17 at 19:16; Status DC Ondansetron HCl (Zofran) 4 mg PRN Q8HRS PRN IV NAUSEA/VOMITING; Start 05/03/17 at 19:15; Stop 05/04/17 at 19:14; Status DC Acetaminophen (Tylenol) 650 mg PRN Q4HRS PRN PO FEVER Last administered on 05/04 15:33; Start 05/03/17 at 19:15; Stop 05/04/17 at 19:14; Status DC Albuterol/ Ipratropium (Duoneb) 3 ml RTQID NEB Last administered on 05/04/17 19:21; Start 05/03/17 at 20:00; Stop 05/04/17 at 19:59; Status DC Prednisone (Prednisone) 60 mg DAILY PO Last administered on 05/05/17 08:36; Start 05/04/17 at 09:00 Atorvastatin Calcium (Lipitor) 40 mg QHS PO Last administered on 05/04/17 21: 39; Start 05/03/17 at 21:00 Famotidine (Pepcid) 20 mg QHS PO Last administered on 05/04/17 21:38; Start at 21:00 Metformin HCl (Glucophage) 500 mg BIDWMEALS PO Last administered on 05/05/17 08:36; Start 05/04/17 at 08:00 Montelukast Sodium (Singulair) 10 mg QHS PO Last administered on 05/04/17 21: 38; Start 05/03/17 at 21:00 Nicotine (Nicoderm Cq 21mg) 1 patch DAILY TD Last administered on 05/05/17 08: 35; Start 05/03/17 at 21:00 Zolpidem Tartrate (Ambien) 5 mg QHS PO Last administered on 05/04/17 21:38; Start 05/03/17 at 21:00 Citalopram Hydrobromide (CeleXA) 40 mg QHS PO Last administered on 05/04/17 21 :38; Start 05/03/17 at 21:30 Metformin HCl (Glucophage) 500 mg 1X ONCE PO Last administered on 05/03/17 21 :40; Start 05/03/17 at 22:00; Stop 05/03/17 at 22:01; Status DC Diphenhydramine HCl (Benadryl) 25 mg PRN Q6HRS PRN IVP ITCHING Last administered on 05/03/17 23:31; Start 05/03/17 at 22:45 Lorazepam (Ativan) 1 mg PRN Q4HRS PRN IV ANXIETY / AGITATION Last administered on 05/04/17 22:21; Start 05/04/17 at 01:00 Vitamin B Complex (Folbic Tablet) 1 tab DAILY PO Last administered on 08:36; Start 05/04/17 at 13:30 Insulin Detemir (Levemir) 8 units 1X ONCE SQ Last administered on 05/04/17 22 :27; Start 05/04/17 at 22:00; Stop 05/04/17 at 22:01; Status DC Insulin Aspart (NovoLOG) 0-7 UNITS TIDWMEALS SQ ; Start 05/05/17 at 08:00; Stop 05/05/17 at 08:00; Status DC Dextrose (Dextrose 50%-Water Syringe) 12.5 gm PRN Q15MIN PRN IV SEE COMMENTS; Start 05/04/17 at 22:00 Insulin Aspart (NovoLOG) 0-7 UNITS QIDACHS SQ Last administered on 05/05/17 11 :34; Start 05/05/17 at 07:30 Albuterol/ Ipratropium (Duoneb) 3 ml RTQID NEB Last administered on 05/05/17 11:03; Start 05/05/17 at 08:00 Potassium Chloride (Klor-Con) 40 meq 1X ONCE PO Last administered on 10:07; Start 05/05/17 at 09:15; Stop 05/05/17 at 09:16; Status DC Active Scripts Active Reported Ambien (Zolpidem Tartrate) 5 Mg Tablet 1 Tab PO QHS Celexa (Citalopram Hydrobromide) 40 Mg Tablet 1 Tab PO HS Metformin Hcl 500 Mg Tablet 500 Mg PO BIDWMEALS NICODERM CQ 21mg (Nicotine) 1 Each Patch.td24 1 Patch TP DAILY Montelukast Sodium Tablet (Montelukast Sodium) 10 Mg Tablet 1 Tab PO QHS Pepcid (Famotidine) 20 Mg Tablet 20 Mg PO QHS Lipitor (Atorvastatin Calcium) 40 Mg Tablet 1 Tab PO QHS Coumadin (Warfarin Sodium) 10 Mg Tablet 1 Tab PO DAILY 10 mg Thursday, Thursday, , Thursday Coumadin (Warfarin Sodium) 10 Mg Tablet 2 Tab PO 3X/WEEK 20 mg Thursday, Thursday and Thursday Vitals/I & O Vital Sign - Last 24 Hours 05/04/17 05/04/17 05/04/17 05/04/17 15:00 15:27 19:22 19:24 Temp 98.6 97.7 98.6 97.7 Pulse 92 109 Resp 18 18 B/P (MAP) 126/69 (88) 136/71 (92) Pulse Ox 96 96 94 O2 Delivery Room Air Room Air Room Air Room Air 05/04/17 05/04/17 05/05/17 05/05/17 20:00 23:22 03:23 07:00 Temp 97.5 97.9 97.9 97.5 97.9 97.9 Pulse 102 103 90 Resp 18 18 20 B/P (MAP) 107/74 (85) 129/81 (97) 117/77 (90) Pulse Ox 96 96 98 O2 Delivery Room Air Room Air Room Air Room Air 05/05/17 05/05/17 05/05/17 08:00 11:00 11:05 Temp 98.3 98.3 Pulse 101 Resp 20 B/P (MAP) 143/90 (107) Pulse Ox 96 98 O2 Delivery Room Air Room Air Room Air Intake and Output 05/04/17 05/04/17 05/05/17 15:00 23:00 07:00 Intake Total 120 ml 240 ml Output Total 300 ml Balance 120 ml -60 ml BIRD DURANT MD May 05, 2017 14:27
[2017-05-05 15:00] VITALS: BP 120/68
[2017-05-05] MEDS ORDERED: ACETAMINOPHEN 325 MG TABLET. PO PRN (18:15)
[2017-05-05 19:00] VITALS: BP 146/69
[2017-05-05] MEDS: FAMOTIDINE 20 MG TABLET. PO SCH (21:13)
[2017-05-05] MEDS: ZOLPIDEM 5 MG TABLET. PO SCH (21:13)
[2017-05-05] MEDS: ATORVASTATIN CALCIUM 40 MG TABLET. PO SCH (21:13)
[2017-05-05] MEDS: CITALOPRAM 20 MG TABLET. PO SCH (21:13)
[2017-05-05] MEDS: MONTELUKAST SODIUM 10 MG TABLET. PO SCH (21:13)
[2017-05-05 23:00] VITALS: BP 118/66
[2017-05-06 03:00] VITALS: BP 122/72
[2017-05-06] MEDS: IPRATRPIUM/ALBUTEROL 0.5/2.5MG 3 ML NEBU. NEB SCH ×2 (06:10→10:58)
[2017-05-06] MEDS ORDERED: ALBUTEROL SULFATE 2.5 MG/3 ML NEBU. NEB PRN (06:15)
[2017-05-06 07:00] VITALS: BP 131/72
[2017-05-06] MEDS: INSULIN ASPART 300 UNITS/3 ML INSULN.PEN SQ SCH (07:30)
--- NOTE | 2017-05-06 08:33 | PDOC ---
Subjective: Subjective: Onc f/u- Hemolytic anemia No dizziness, chest pain, SOB Ambulating in halls without difficulty Anticipates DC today Objective: Vital Signs: Vital Signs Date Time Temp Pulse Resp B/P (MAP) Pulse Ox O2 Delivery O2 Flow Rate FiO2 05/06/17 07:00 98.2 98 20 131/72 (91) 96 Room Air 98.2 Physical Exam: Heart: Regular rate Extremities: No edema General: Alert, Oriented X3, Cooperative, No acute distress Lungs: Other (no respiratory distress) Psych/Mental Status: Mental status NL, Mood NL Skin: Other (no pallor) Labs/Imaging: CBC and retic count sent, pending. Assessment/Plan A/P: 1. Recurrent autoimmune hemolytic anemia with significant worsening of hemoglobin of 6.1. Stable s/p 2 units PRBC and prednisone 60 mg daily. Continue on DC. Will f/u with Dr. Christiansen next week. Historically responds well to steroids. If fails steroids, may consider rituxan or splenectomy. Awaiting hgb today; if stable as suggested clinically, ok to dc with f/u with Dr. Christiansen next week. D/w her nurse, GAMALIEL Dao DO May 06, 2017 08:33
[2017-05-06 08:40] LABS: BASO % 1 % (0-3); EOS % 1 % (0-3); HEMATOCRIT 27.5 % (36.0-47.0); LYMPH # 1.7 x10^3/uL (1.0-4.8); LYMPH % 32 % (24-48); MEAN CORPUSCULAR HEMOGLOBIN 34 pg (25-35); MEAN CORPUSCULAR HGB CONC 33 g/dL (31-37); MEAN CORPUSCULAR VOLUME 103 fL (79-100); MONO % 7 % (0-9); NEUT % 60 % (31-73); PLATELET COUNT 206 x10^3/uL (140-400); RED BLOOD COUNT 2.68 x10^6/uL (3.50-5.40); RED CELL DISTRIBUTION WIDTH 20.5 % (11.5-14.5); RETIC COUNT 17.1 % (0.5-2.5); WHITE BLOOD COUNT 5.3 x10^3/uL (4.0-11.0)
[2017-05-06] MEDS: NICOTINE 21MG PATCH. TD SCH (08:45)
[2017-05-06] MEDS: metFORMIN 500 MG TABLET PO SCH (08:46)
[2017-05-06] MEDS: VITAMIN B12,B9,B6 COMPLEX 1 TABLET. PO SCH (08:46)
[2017-05-06] MEDS: predniSONE 20 MG TABLET PO SCH (08:46)
[2017-05-06] MEDS ORDERED: PRED50TA PO (09:04)
[2017-05-06] MEDS ORDERED: PRED-220 PO (09:04)
[2017-05-06 11:00] VITALS: BP 139/73
--- NOTE | 2017-05-06 16:00 | PDOC3 ---
Discharge Summary Visit Information Date of Admission: May 03, 2017 Date of Discharge: May 06, 2017 Admitting Diagnosis: anemia Final Diagnosis 1. Recurrent autoimmune hemolytic anemia 2. COPD, stable 3. Legally blind 4. Dm2, Brief Hospital Course Allergies Allergies Coded Allergies Type Severity Reaction Last Updated Verified No Known Drug Allergies 07/10/16 No Vital Signs Vital Signs Date Time Temp Pulse Resp B/P (MAP) Pulse Ox O2 Delivery O2 Flow Rate FiO2 05/06/17 11:00 97.8 103 22 139/73 (95) 95 Room Air 97.8 Lab Results Laboratory Tests Test 05/04/17 17:02 05/04/17 20:53 05/05/17 04:29 05/05/17 07:32 Glucose (Fingerstick) 263 mg/dL (70-99) 233 mg/dL (70-99) 131 mg/dL (70-99) White Blood Count 4.7 x10^3/uL (4.0-11.0) Red Blood Count 2.54 x10^6/uL (3.50-5.40) Hemoglobin 8.7 g/dL (12.0-15.5) Hematocrit 25.6 % (36.0-47.0) Mean Corpuscular Volume 101 fL (79-100) Mean Corpuscular Hemoglobin 34 pg (25-35) Mean Corpuscular Hemoglobin Concent 34 g/dL (31-37) Red Cell Distribution Width 20.4 % (11.5-14.5) Platelet Count 194 x10^3/uL (140-400) Neutrophils (%) (Auto) 73 % (31-73) Lymphocytes (%) (Auto) 20 % (24-48) Monocytes (%) (Auto) 6 % (0-9) Eosinophils (%) (Auto) 1 % (0-3) Basophils (%) (Auto) 1 % (0-3) Neutrophils # (Auto) 3.4 x10^3uL (1.8-7.7) Lymphocytes # (Auto) 0.9 x10^3/uL (1.0-4.8) Monocytes # (Auto) 0.3 x10^3/uL (0.0-1.1) Eosinophils # (Auto) 0.0 x10^3/uL (0.0-0.7) Basophils # (Auto) 0.0 x10^3/uL (0.0-0.2) Reticulocyte Count (auto) 18.6 % (0.5-2.5) Sodium Level 143 mmol/L (136-145) Potassium Level 3.5 mmol/L (3.5-5.1) Chloride Level 106 mmol/L (98-107) Carbon Dioxide Level 28 mmol/L (21-32) Anion Gap 9 (6-14) Blood Urea Nitrogen 21 mg/dL (7-20) Creatinine 0.9 mg/dL (0.6-1.0) Estimated GFR (Cockcroft-Gault) 65.5 Glucose Level 111 mg/dL (70-99) Calcium Level 8.5 mg/dL (8.5-10.1) Test 05/05/17 11:03 05/05/17 16:54 05/05/17 20:38 05/06/17 06:05 Glucose (Fingerstick) 163 mg/dL (70-99) 385 mg/dL (70-99) 126 mg/dL (70-99) White Blood Count 5.3 x10^3/uL (4.0-11.0) Red Blood Count 2.68 x10^6/uL (3.50-5.40) Hemoglobin 9.0 g/dL (12.0-15.5) Hematocrit 27.5 % (36.0-47.0) Mean Corpuscular Volume 103 fL (79-100) Mean Corpuscular Hemoglobin 34 pg (25-35) Mean Corpuscular Hemoglobin Concent 33 g/dL (31-37) Red Cell Distribution Width 20.5 % (11.5-14.5) Platelet Count 206 x10^3/uL (140-400) Neutrophils (%) (Auto) 60 % (31-73) Lymphocytes (%) (Auto) 32 % (24-48) Monocytes (%) (Auto) 7 % (0-9) Eosinophils (%) (Auto) 1 % (0-3) Basophils (%) (Auto) 1 % (0-3) Neutrophils # (Auto) 3.2 x10^3uL (1.8-7.7) Lymphocytes # (Auto) 1.7 x10^3/uL (1.0-4.8) Monocytes # (Auto) 0.4 x10^3/uL (0.0-1.1) Eosinophils # (Auto) 0.0 x10^3/uL (0.0-0.7) Basophils # (Auto) 0.0 x10^3/uL (0.0-0.2) Reticulocyte Count (auto) 17.1 % (0.5-2.5) Test 05/06/17 07:24 Glucose (Fingerstick) 95 mg/dL (70-99) Laboratory Tests Test 05/05/17 16:54 05/05/17 20:38 05/06/17 06:05 05/06/17 07:24 Glucose (Fingerstick) 385 mg/dL (70-99) 126 mg/dL (70-99) 95 mg/dL (70-99) White Blood Count 5.3 x10^3/uL (4.0-11.0) Red Blood Count 2.68 x10^6/uL (3.50-5.40) Hemoglobin 9.0 g/dL (12.0-15.5) Hematocrit 27.5 % (36.0-47.0) Mean Corpuscular Volume 103 fL (79-100) Mean Corpuscular Hemoglobin 34 pg (25-35) Mean Corpuscular Hemoglobin Concent 33 g/dL (31-37) Red Cell Distribution Width 20.5 % (11.5-14.5) Platelet Count 206 x10^3/uL (140-400) Neutrophils (%) (Auto) 60 % (31-73) Lymphocytes (%) (Auto) 32 % (24-48) Monocytes (%) (Auto) 7 % (0-9) Eosinophils (%) (Auto) 1 % (0-3) Basophils (%) (Auto) 1 % (0-3) Neutrophils # (Auto) 3.2 x10^3uL (1.8-7.7) Lymphocytes # (Auto) 1.7 x10^3/uL (1.0-4.8) Monocytes # (Auto) 0.4 x10^3/uL (0.0-1.1) Eosinophils # (Auto) 0.0 x10^3/uL (0.0-0.7) Basophils # (Auto) 0.0 x10^3/uL (0.0-0.2) Reticulocyte Count (auto) 17.1 % (0.5-2.5) Brief Hospital Course Ms. Tristan is a 51 old w. prior episode of hemolytic anemia, admit with lethargy, hGb 6.1. Stable s/p 2 units PRBC and prednisone 60 mg daily. Continue on DC until f/u with Dr. Christiansen next week. added SSI for DM2 control, cont outpatient her COPD baseline improved with steroid treatment Per Heme consutl, If fails steroids, may consider rituxan or splenectomy. Discharge Information Condition at Discharge: Improved Follow Up: Weeks Disposition/Orders: D/C to Home Scheduled Atorvastatin Calcium (Lipitor), 1 TAB PO QHS, (Reported) Citalopram Hydrobromide (Celexa), 1 TAB PO HS, (Reported) Famotidine (Pepcid), 20 MG PO QHS, (Reported) Metformin Hcl (Metformin Hcl), 500 MG PO BIDWMEALS, (Reported) Montelukast Sodium (Montelukast Sodium Tablet), 1 TAB PO QHS, (Reported) Nicotine (NICODERM CQ 21mg), 1 PATCH TP DAILY, (Reported) Prednisone (Prednisone), 1 TAB PO DAILY Prednisone (Prednisone), 10 MG PO UD Warfarin Sodium (Coumadin), 2 TAB PO 3X/WEEK, (Reported) Warfarin Sodium (Coumadin), 1 TAB PO DAILY, (Reported) Zolpidem Tartrate (Ambien), 1 TAB PO QHS, (Reported) Discontinued Medications Citalopram Hydrobromide (Celexa), 1 TAB PO HS, (Reported) Discontinued Reason: Prescription changed Metformin Hcl (Metformin Hcl), 1 TAB PO, (Reported) Discontinued Reason: Prescription changed Patient Instructions Patient Instructions < 30min prednisone 60 flexpen aspart insulin on sliding scale until off prednisone JENY CORTES MD May 06, 2017 16:00
== END 2017-05-06 12:32 | disposition home or self-care (01) | DRG 810 ==
LOC: ER 17:37 → 4 NORTH 18:41
PROVIDERS: ADMIT Internal Medicine; ATTEND Internal Medicine
PROC: 30233N1 Transfusion of Nonautologous Red Blood Cells into Peripheral Vein, Percutaneous Approach (ICD-10-PCS; principal; 2017-05-03)
DX: D59.1 Other autoimmune hemolytic anemias (principal); E11.9 Type 2 diabetes mellitus without complications; F17.210 Nicotine dependence, cigarettes, uncomplicated; F43.10 Post-traumatic stress disorder, unspecified; H54.8 Legal blindness, as defined in USA; J44.9 Chronic obstructive pulmonary disease, unspecified; Z80.8 Family history of malignant neoplasm of other organs or systems; Z82.49 Family history of ischemic heart disease and other diseases of the circulatory system; Z86.711 Personal history of pulmonary embolism; Z83.3 Family history of diabetes mellitus; Z98.49 Cataract extraction status, unspecified eye; Z90.81 Acquired absence of spleen; Z90.89 Acquired absence of other organs; F32.89 Other specified depressive episodes
CPT/HCPCS: 36415; 71010; 76700; 80048; 80053; 80074; 81001; 82607; 82746; 82962; 83010; 83540; 83550; 83615; 83880; 84443; 84484; 85027; 85045; 86850; 86880; 86900; 86901; 86922; 87086; 93005; 94250; 94640; 94760; J1200; J1815; J2060; J7512; J7620; P9016; 99285-25

== ENCOUNTER 2017-06-22 12:12 | Emergency (ER) | payer MEDICARE, OTHER ==
[~2017-06-22] VITALS: Ht 152.4 cm; Wt 65.8 kg
[~2017-06-22 12:12] MED LIST changes: +CITA40TA12 PO; +METF500T4 PO; +PRED-220 PO; +PRED50TA PO; +ZOLP5TAB PO
[2017-06-22] MEDS ORDERED: IPRATRPIUM/ALBUTEROL 0.5/2.5MG 3 ML NEBU. NEB ONE (12:30)
--- NOTE | 2017-06-22 12:48 | RAD ---
Chest radiograph 06/22/2017 at 1238 hours Indication: Shortness of air, COPD Comparison: Chest radiograph 05/03/2017 Technique: Single frontal view of the chest is provided. Findings: Suture material is identified in the left midlung. Cardiomediastinal silhouette is within normal limits. There is distortion of the architecture of the pulmonary septa in the bilateral lower lobes suggestive of moderate emphysematous changes. There is hyperinflation with flattening of the diaphragms. No pleural effusions component vascular congestion or pneumothorax. Lungs are otherwise clear. No suspicious osseous lesions are identified. Impression: Findings are compatible with pulmonary emphysema without evidence for acute infiltrate.
[2017-06-22 13:06] LABS: CALCIUM 8.6 mg/dL (8.5-10.1); CREATININE 0.8 mg/dL (0.6-1.0); POTASSIUM 3.6 mmol/L (3.5-5.1)
[2017-06-22 13:09] LABS: BASO % 1 % (0-3); EOS % 1 % (0-3); HEMATOCRIT 37.1 % (36.0-47.0); HEMOGLOBIN 12.8 g/dL (12.0-15.5); LYMPH # 1.6 x10^3/uL (1.0-4.8); LYMPH % 26 % (24-48); MEAN CORPUSCULAR HEMOGLOBIN 32 pg (25-35); MEAN CORPUSCULAR HGB CONC 35 g/dL (31-37); MEAN CORPUSCULAR VOLUME 91 fL (79-100); MONO % 7 % (0-9); NEUT % 66 % (31-73); PLATELET COUNT 165 x10^3/uL (140-400); RED BLOOD COUNT 4.07 x10^6/uL (3.50-5.40); RED CELL DISTRIBUTION WIDTH 14.3 % (11.5-14.5); WHITE BLOOD COUNT 6.4 x10^3/uL (4.0-11.0)
[2017-06-22 13:12] LABS: ALBUMIN 4.4 g/dL (3.4-5.0); DIRECT BILIRUBIN 0.2 mg/dL (0.0-0.2); TOTAL BILIRUBIN 0.9 mg/dL (0.2-1.0); TOTAL PROTEIN 7.6 g/dL (6.4-8.2)
--- NOTE | 2017-06-22 13:45 | EKG ---
[facility] [address] [place] [address] Test Date: 2017-06-22 Test Time: 12:45:08 Pat Name: LASHONDA EMANUEL Department: Room: Gender: F Director Of Conservation: : 1965 Requested By: MELANI RESENDIZ Order Number: [id number] Reading MD: Remedios Zimmer Measurements Intervals [place] Rate: 102 P: 90 PA: 150 QRS: 83 QRSD: 84 T: 72 QT: 334 QTc: 439 Interpretive Statements SINUS TACHYCARDIA BIATRIAL ENLARGEMENT Electronically Signed On 06-24-2017 20:20:30 CDT by Remedios Zimmer
[2017-06-22] MEDS ORDERED: PROVENTIL HFA6.7 G1 IH (13:50)
[2017-06-22] MEDS ORDERED: ALBU2.5V14 NEB (13:50)
--- NOTE | 2017-06-22 13:53 | PHYS DOC ---
Past Medical History Past Medical History: COPD, Depression, Diabetes-Type II, High Cholesterol Additional Past Medical Histor: pulmonary embolism, hemolytic anemia Past Surgical History: Tonsillectomy Additional Past Surgical Histo: thoracotomy, cataract Alcohol Use: None Drug Use: None Adult General Chief Complaint Chief Complaint: SHORTNESS OF BREATH HPI HPI 51-year-old female presenting to the emergency department today with worsening shortness of breath. She has a history of COPD. This started 2-3 days ago. Location lungs. Duration intermittent. Improved with inhaler at home.The patient denies unilateral leg swelling pr hemoptysis. The pt denies recent immobilization or surgery. Review of systems is negative for chest pain abdominal pain nausea vomiting fevers chills diaphoresis. All other review of systems is negative unless otherwise noted in history of present illness. ED course: 51-year-old female presenting to the emergency department today with worsening shortness of breath. Patient was hypoxic initially with wheezing on auscultation of lungs. Patient was given a nebulizer in the emergency department. She reports being on prednisone currently. On reexamination, the patient's breathing improved significantly. She was able to titrate off of oxygen here in the emergency department and able to walk in the emergency department without any difficulty. The patient does have a history of blood clots per reports taking her anticoagulation medication as prescribed. The patient was then discharged home in stable condition to follow up with their primary care physician over the next 2-3 days. They were to return if their symptoms worsened or if they were concerned for any reason. [id number] discharge instructions and return precautions were given. Patient's questions were answered to their satisfaction. Patient is comfortable plan. Review of Systems Review of Systems SEE ABOVE. Current Medications Current Medications Current Medications Medications (Trade) Dose Ordered Sig/[facility] Start Time Stop Time Status Last Admin Dose Admin Albuterol/ Ipratropium (Duoneb) 3 ml 1X ONCE 06/22/17 12:30 06/22/17 12:31 DC 06/22/17 13:30 3 ML Allergies Allergies Allergies Coded Allergies Type Severity Reaction Last Updated Verified No Known Drug Allergies 07/10/16 No Physical Exam Physical Exam Constitutional: Well developed, well nourished, no acute distress, non-toxic appearance. [] HENT: Normocephalic, atraumatic, bilateral external ears normal, oropharynx moist, no oral exudates, nose normal. [] Eyes: PERRLA, EOMI, conjunctiva normal, no discharge. [] Neck: Normal range of motion, no tenderness, supple, no stridor. [] Cardiovascular:Heart rate regular rhythm, no murmur [] Lungs & Thorax: Bilateral breath sounds clear to auscultation [] Abdomen: Bowel sounds normal, soft, no tenderness, no masses, no pulsatile masses. [] Skin: Warm, dry, no erythema, no rash. [] Back: No tenderness, no CVA tenderness. [] Extremities: No tenderness, no cyanosis, no clubbing, ROM intact, no edema. [] Neurologic: Alert and oriented X 3, normal motor function, normal sensory function, no focal deficits noted. [] Psychologic: Affect normal, judgement normal, mood normal. [] Current Patient Data Vital Signs Vital Signs Date Time Temp Pulse Resp B/P (MAP) Pulse Ox O2 Delivery O2 Flow Rate FiO2 06/22/17 13:32 98 Room Air 06/22/17 13:00 104 20 141/83 (102) 2.0 06/22/17 12:22 98.4 98.4 Lab Values Laboratory Tests Test 06/22/17 12:50 White Blood Count 6.4 x10^3/uL (4.0-11.0) Red Blood Count 4.07 x10^6/uL (3.50-5.40) Hemoglobin 12.8 g/dL (12.0-15.5) Hematocrit 37.1 % (36.0-47.0) Mean Corpuscular Volume 91 fL (79-100) Mean Corpuscular Hemoglobin 32 pg (25-35) Mean Corpuscular Hemoglobin Concent 35 g/dL (31-37) Red Cell Distribution Width 14.3 % (11.5-14.5) Platelet Count 165 x10^3/uL (140-400) Neutrophils (%) (Auto) 66 % (31-73) Lymphocytes (%) (Auto) 26 % (24-48) Monocytes (%) (Auto) 7 % (0-9) Eosinophils (%) (Auto) 1 % (0-3) Basophils (%) (Auto) 1 % (0-3) Neutrophils # (Auto) 4.2 x10^3uL (1.8-7.7) Lymphocytes # (Auto) 1.6 x10^3/uL (1.0-4.8) Monocytes # (Auto) 0.4 x10^3/uL (0.0-1.1) Eosinophils # (Auto) 0.1 x10^3/uL (0.0-0.7) Basophils # (Auto) 0.0 x10^3/uL (0.0-0.2) Sodium Level 139 mmol/L (136-145) Potassium Level 3.6 mmol/L (3.5-5.1) Chloride Level 99 mmol/L (98-107) Carbon Dioxide Level 35 mmol/L (21-32) H Anion Gap 5 (6-14) L Blood Urea Nitrogen 15 mg/dL (7-20) Creatinine 0.8 mg/dL (0.6-1.0) Estimated GFR (Cockcroft-Gault) 75.0 Glucose Level 264 mg/dL (70-99) H Calcium Level 8.6 mg/dL (8.5-10.1) Total Bilirubin 0.9 mg/dL (0.2-1.0) Direct Bilirubin 0.2 mg/dL (0.0-0.2) Aspartate Amino Transferase (AST) 9 U/L (15-37) L Alanine Aminotransferase (ALT) 30 U/L (14-59) Alkaline Phosphatase 42 U/L (46-116) L Troponin I Quantitative < 0.017 ng/mL (0.000-0.055) CG-Adu-A-Type Natriuretic Peptide 116 pg/mL (0-124) Total Protein 7.6 g/dL (6.4-8.2) Albumin 4.4 g/dL (3.4-5.0) Lipase 147 U/L (73-393) Laboratory Tests 06/22/17 12:50 Laboratory Tests 06/22/17 12:50 EKG EKG EKG shows sinus tachycardia. ST segments are congruent. Not suggestive of ACS. [place] is normal. Intervals within normal limits. reviewed by myself[] Radiology/Procedures Radiology/Procedures [] Course & Med Decision Making Course & Med Decision Making Pertinent Labs and Imaging studies reviewed. (See chart for details) [] Dragon Disclaimer Dragon Disclaimer This electronic medical record was generated, in whole or in part, using a voice recognition dictation system. Departure Departure Impression: Primary Impression: COPD exacerbation Disposition: HOME, SELF-CARE Condition: STABLE Referrals: BIRD DURANT MD (PCP) Patient Instructions: Chronic Obstructive Pulmonary Disease Exacerbation Additional Instructions: Thank you for allowing us to participate in your care today. Followup with your primary care physician in 3 days if your symptoms do not improve. Call your Primary Doctor tomorrow and inform them of your visit today. If you do not have a primary care provider you can ask for a list of our primary care providers. Return to the emergency department you have any new or concerning findings. This should be evaluated by the primary care physician and any necessary consulting services for continued management within a few days after discharge. Return to emergency room if you have any new or concerning symptoms including but not limited to fever, chills, nausea, vomiting, intractable pain, any new rashes, chest pain, shortness of air, uncontrolled bleeding, difficulty breathing, and/or vision loss. Scripts Albuterol Sulfate (Proventil Hfa) 6.7 Gm Hfa.aer.ad 6.7 GM IH PRN TID Y for WHEEZING, #1 INHALER 0 Refills Prov: MELANI RESENDIZ MD 06/22/17 Albuterol Sulfate (ALBUTEROL SULFATE CONC NEB SOLN) 2.5 Mg/0.5 Ml Vial.neb 1 VIAL NEB Q6HRS, #120 VIAL 0 Refills Prov: MELANI RESENDIZ MD 06/22/17 MELANI RESENDIZ MD Jun 22, 2017 13:53
[2017-06-22 13:58] VITALS: BP 121/72
== END 2017-06-22 14:20 | disposition home or self-care (01) ==
LOC: ER 12:12
DX: J44.1 Chronic obstructive pulmonary disease with (acute) exacerbation (principal); F32.9 Major depressive disorder, single episode, unspecified; E78.00 Pure hypercholesterolemia, unspecified; E11.36 Type 2 diabetes mellitus with diabetic cataract; Z98.49 Cataract extraction status, unspecified eye; Z86.711 Personal history of pulmonary embolism
CPT/HCPCS: 36415; 71010; 80048; 80076; 83690; 83880; 84484; 85025; 93005; 94250; 94640; 99285; J7620

== ENCOUNTER 2019-08-01 21:28 | Emergency (ER) | payer MEDICARE, MEDICAID ==
[~2019-08-01] VITALS: Ht 154.9 cm; Wt 65.8 kg
[~2019-08-01 21:28] MED LIST changes: +ALBU2.5V14 NEB; -METF-620 PO; +METF10007 PO; +METF500T16 PO; -METF500T4 PO; +MONT10TA49 PO; -MONT10TA9 PO; +PROVENTIL HFA6.7 G1 IH
[2019-08-01 22:01] VITALS: BP 186/81
[2019-08-01] MEDS ORDERED: BUPIVACAINE MPF 0.25% 10 ML VIAL. IJ ONE (22:30)
[2019-08-01] MEDS ORDERED: PENI500T PO (22:34)
--- NOTE | 2019-08-01 22:34 | PHYS DOC ---
Past Medical History Past Medical History: COPD, Depression, Diabetes-Type II, High Cholesterol Additional Past Medical Histor: pulmonary embolism, hemolytic anemia Past Surgical History: Tonsillectomy Additional Past Surgical Histo: thoracotomy, cataract Alcohol Use: None Drug Use: None Adult General Chief Complaint Chief Complaint: DENTAL PROBLEM HPI HPI Patient is a 53 year old [female] who presents with [dental pain. patient states she had fractured a tooth several months ago, reports over the last day she has had no severe increase in discomfort in that same tooth. Reports she has had dental caries and fractured teeth in the past, has a dentist but she has n ot seen them for several years. States she is not sure what caused the increase in pain in this tooth today, reports that it has been unbearable over the last 2-3 days. Denies any fever, denies any difficulty moving jaw.] Review of Systems Review of Systems Constitutional: Denies fever or chills [] HENT: Denies nasal congestion or sore throat, reports pain to left lower posterior molar [] Respiratory: Denies cough or shortness of breath [] Cardiovascular: No additional information not addressed in HPI [] Neurologic: Denies headache, focal weakness or sensory changes [] Endocrine: Denies polyuria or polydipsia [] All other systems were reviewed and found to be within normal limits, except as documented in this note. Allergies Allergies Allergies Coded Allergies Type Severity Reaction Last Updated Verified No Known Drug Allergies 07/10/16 No Physical Exam Physical Exam Constitutional: Well developed, well nourished, appears uncomfortable, non-toxic appearance. [] HENT: Normocephalic, atraumatic, bilateral external ears normal, oropharynx moist, no oral exudates, nose normal. Tooth #37 noted fracture, tenderness surrounding. No swelling, noted, no dental abscess noted no purulence noted surrounding] Neck: Normal range of motion, no tenderness, supple, no stridor. [] Cardiovascular:Heart rate regular rhythm, no murmur [] Extremities: No tenderness, no cyanosis, no clubbing, ROM intact, no edema. [] Neurologic: Alert and oriented X 3, normal motor function, normal sensory function, no focal deficits noted. [] Psychologic: Affect normal, judgement normal, mood normal. [] EKG EKG [] Radiology/Procedures Radiology/Procedures Dental block performed - Using lower mandible block, 3 ml of 0.25% Bupivicaine injected. Well tolerated by patient. Course & Med Decision Making Course & Med Decision Making Pertinent Labs and Imaging studies reviewed. (See chart for details) [Discussed dental block. Discussed use of antibiotics. Discussed use of tylenol/ibuprofen at home. Follow up with Dentist, Patient reports they will follow up in the morning and try to get an appointment scheduled'] Dragon Disclaimer Dragon Disclaimer This electronic medical record was generated, in whole or in part, using a voice recognition dictation system. Departure Departure Impression: Primary Impression: Tooth fracture Disposition: HOME, SELF-CARE Condition: STABLE Referrals: ROSA ELENA DUMONT (PCP) Patient Instructions: Dental Fracture Additional Instructions: As we discussed, take tylenol and ibuprofen for discomfort even when you get home. Take 600 mg ibuprofen every 8 hours and / or 1000 mg tylenol every 6 hours. Follow up with your dentist in the morning. Scripts Penicillin V Potassium (PENICILLIN V POTASSIUM) 500 Mg Tablet 500 MG PO TID for 10 Days, #30 TAB 0 Refills Prov: FERCHO HUDSON APRN 08/01/19 Problem Qualifiers Primary Impression: Tooth fracture Encounter type: initial encounter Fracture type: open Qualified Codes: S02.5XXB - Fracture of tooth (traumatic), initial encounter for open fracture FERCHO HUDSON APRN Aug 01, 2019 22:34
== END 2019-08-01 22:36 | disposition home or self-care (01) ==
LOC: ER 21:28
DX: S02.5XXB Fracture of tooth (traumatic), initial encounter for open fracture (principal); J44.9 Chronic obstructive pulmonary disease, unspecified; E11.9 Type 2 diabetes mellitus without complications; E78.00 Pure hypercholesterolemia, unspecified; Z86.711 Personal history of pulmonary embolism; X58.XXXA Exposure to other specified factors, initial encounter; Y93.89 Activity, other specified; Y92.89 Other specified places as the place of occurrence of the external cause; Y99.8 Other external cause status
CPT/HCPCS: 64400; 99284; J3490